=== PATIENT | male | born 1960 | race Caucasian/White ===

== ENCOUNTER 2017-04-10 20:08 | Observation (INO) | payer OTHER, SELFPAY ==
[2017-04-10 20:10] VITALS: BP 140/106; PULSE 85; RESP 16; TEMP 36.7; O2SAT 93; BMI 28.0
--- NOTE | 2017-04-10 21:01 | RAD_ITS ---
STUDY: X-RAY CHEST REASON FOR EXAM: Male, 56 years old. Hemoptysis TECHNIQUE: AP COMPARISON: None. FINDINGS: There are prominent markings in the right lower lobe possibly representing subsegmental atelectasis or evolving infiltrate. Left lung is clear. There is no demonstrated pleural abnormality. Normal size heart. Normal mediastinum and karen. Normal visualized pulmonary arteries. Normal visualized aortic arch and descending thoracic aorta. Normal visualized thoracic spine. Normal visualized ribs, clavicles, and shoulders. There is no demonstrated abnormality of the visualized soft tissue structures of the upper abdomen. RAD/Chest 1 View (Portable) IMPRESSION: Asymmetric prominence of markings in right lower lobe possibly representing subsegmental atelectasis or evolving infiltrate Electronically Signed: Dioni Alston MD at 22:18 EST , Service support ,
--- NOTE | 2017-04-10 21:01 | EKG12_ITS ---
Test Reason : SOB Blood Pressure : / mmHG Vent. Rate : 062 BPM Atrial Rate : 062 BPM P-R Int : 140 ms QRS Dur : 110 ms QT Int : 394 ms P-R-T Axes : 062 059 048 degrees QTc Int : 399 ms Normal sinus rhythm Normal ECG Confirmed by ISAURO LOPEZ, CHELO ([id number]), editor book LETHA HOWARD ([id number]) on 04/14/2017 1:11:19 PM Referred By: JANNY Confirmed By:CHELO BOX MD
--- NOTE | 2017-04-10 21:02 | CT_ITS ---
STUDY: CTA CHEST REASON FOR EXAM: Male, 56 years old. Hemoptysis RADIATION DOSAGE (If Supplied By Facility): CTDIvol = ( 16.43 ) mGy, DLP = ( 634.79 ) mGycm TECHNIQUE: The examination was performed with the intravenous administration of 100ML ml of Isovue 370 contrast material. Post-processing of the angiographic images was performed, with multiplanar reformation and 3D reconstruction. Individualized dose optimization techniques were used for this CT. COMPARISON: None. FINDINGS: Normal enhancement of the main pulmonary artery and right and left pulmonary arteries. Normal enhancement of the bilateral peripheral pulmonary arteries. There is no demonstrated pulmonary embolism. Normal thoracic aorta and visualized great vessels. There is no demonstrated aortic dissection. Normal heart and pericardium. Normal mediastinum. Normal hilar regions. Normal visualized trachea and bronchi. The lungs are well expanded. There is a subtle pattern of mosaic attenuation within the lower lobes bilaterally and right middle lobe which are nonspecific in etiology but can be seen in nonspecific conditions producing pulmonary hemorrhage Hypersensitivity pneumonitis, asthma or chronic embolic disease Dorsal spine demonstrates spondylosis. Normal chest wall structures. Normal osseous structures. Normal visualized upper abdomen. CT/CTA Chest W/WO Contrast IMPRESSION: Nonspecific mosaic attenuation appearance within the bilateral lower lobes and right middle lobe. No evidence for pulmonary embolus at this time Electronically Signed: Dioni Alston MD at 23:02 EST , Service support ,
--- NOTE | 2017-04-10 21:05 | NURSING ---
NO OLD EKG'S IN MUSE
[2017-04-10 21:17] VITALS: PULSE 64; RESP 18
[2017-04-10] MEDS: Ipratropium/Albuterol Sulfate 3 ML AMPUL.NEB INHALATION (21:17)
[2017-04-10] MEDS: Albuterol 2.5 MG/3 ML VIAL.NEB. INHALATION ×3 (21:17→21:49)
--- NOTE | 2017-04-10 21:17 | ED.DCSUM_ITS ---
- ER Visit Summary Date of Service: 04/10/17 Chief Complaint: Hemoptysis History of Present Illness: The patient is a 56 M presenting with hemoptysis since yesterday. He states he has had intermittent chest pain today. He has had a cough with bloody sputum since yesterday but worsened over the last hour. He has shortness of breath. He denies fever. He recently started colchicine for gout. He also takes aspirin and Aleve. Physical Examination: Vitals are stable. Patient is afebrile. Alert no acute distress. HEENT exam is unremarkable. Neck is supple. Lungs are rhonchorous bilaterally. Heart is regular rate and rhythm. Abdomen is soft nontender nondistended. Extremities are unremarkable. Skin is warm and dry. No focal neurologic deficit. Remainder of exam is unremarkable. Emergency Department Course and Treatment: Patient was given albuterol and atrovent aerosols. EKG is sinus rhythm rate is 62. Chest x-ray shows asymmetric prominence right lower lobe. CBC chemistries unremarkable. INR 0.9. Troponin is negative. Lactic acid is normal. Influenza is negative. CTA chest shows nonspecific mosaic attenuation appearance within the bilateral lower lobes and right middle lobe. No evidence for pulmonary embolus at this time. Discussed with Dr. Lau. He will see him in consultation in the hospital. He was given Solu-Medrol IV. Discussed with the hospitalist for admission Disposition: Admission Impression: Hemoptysis This note was generated with [employer] dictation software. It may contain incorrect words, spelling, and punctuation that were not noted in review of the chart prior to signing ED Disposition - Plan for ED Patient: Chief Complaint: Cough Referrals: NOT,DEFINED [NON-STAFF] -
[2017-04-10] MEDS: 0.9% Normal Saline 1,000 ML 1000 ML IV (21:31)
[2017-04-10 21:33] VITALS: O2SAT 96
[2017-04-10 21:33] LABS: Absolute Lymphocyte Count 2.14 X10^3/ul (0.83-4.51); Absolute Neutrophil Count 3.5 X10^3/uL (2.0-7.7); Basophil# 0.03 X10^3/uL; Basophil% 0.5 % (0-1); Eosinophil# 0.28 X10^3/uL; Eosinophils% 4.3 % (0-5); Hematocrit 43.2 % (40-54); Hemoglobin 14.7 g/dl (13.0-16.5); Lymphocyte # 2.14 X10^3/ul (4.0); Mean Corpuscular Volume 85.2 fL (80-94); Mean Platelet Vol. 9.2 fl (6.2-12.0); Monocyte# 0.55 X10^3/uL; Monocyte% 8.5 % (0-10); Neutrophil # 3.48 X10^3/uL (2.7-7.7); Neutrophil % 53.5 % (47-70); Platelet Count 272 K/mm3 (150-450); RBC Distribution Width CV 13.1 % (11.6-14.6); RBC Distribution Width SD 40.6 fl (35.1-43.9); Red Blood Count 5.07 M/mm3 (4.6-6.2); White Blood Count 6.5 K/mm3 (4.4-11.0)
[2017-04-10 21:38] LABS: POSITIVE COUNT NO; POSITIVE DIFFERENTIAL NO; POSITIVE MORPHOLOGY NO
[2017-04-10 21:49] VITALS: PULSE 71; RESP 16
[2017-04-10 21:49] LABS: International Normalized Ratio 0.9; Prothrombin Time (Protime)PT. 11.9 SECONDS (11.7-14.9)
[2017-04-10 21:50] LABS: Anion Gap 10 (5-15); BUN 16 mg/dL (7-18); BUN/Creat Ratio 20.4 RATIO (10-20); Calcium,Total 8.2 mg/dL (8.5-10.1); Chloride 109 mmol/L (98-107); Creatinine, Serum 0.79 mg/dL (0.70-1.30); EST Glomerular Filtration Rate 109 mL/min (>60); Est Glom Filt Rate - Afr Amer 132 mL/min (>60); Estimated Creatinine Clearance 117.33 ml/min; Glucose 104 mg/dL (74-106); Potassium 3.7 mmol/L (3.5-5.1); Sodium Level 141 mmol/L (136-145)
[2017-04-10 21:58] LABS: Lactic Acid 1.3 mmol/L (0.4-2.0)
[2017-04-10 23:46] VITALS: BP 131/89; PULSE 70; RESP 11; O2SAT 94
[2017-04-11] VITALS (21 sets, daily range): BP systolic 114–138; BP diastolic 57–89; PULSE 55–88; RESP 16–18; TEMP 36.4–37.3; O2SAT 93–97; BMI 27.1; BMI 27.2
--- NOTE | 2017-04-11 | FLU_PTH ---
PATIENT: AMAURY GRIFFITH LOC: [facility] U#:[id number] AGE/SX: 56/M ROOM: [facility] RE04/11/[address]: Dr. Michelle Min MD : 1960 BED: 1 DIS: 04/12/2017 SPEC #: [id number] RECD: 04/11/17 13:48 STATUS: SOUEsteban REQ #: [id number] DWAINE: 04/11/17 00:[address]: Alton Lau DEPT: CYTOLOGY RECD BY: Gary Jerez ENTERED: 04/11/17 13:48 SP TYPE: Fluid OTHR DR: Dr. Steven Fulton, DO MD Louise Conrad, BICYCLE ASSEMBLER-C Tissues: Bronchus of right lower lobe Procedures: Pap Stain (control) Special Stain Group II Special Stain Group I Surgery Specimen Level IV AFB Stain (control) GMS Stain (control) Cell Block Cytospin Fluid Comments: @ Ordering doctor for SSII edited from to [email or web address] Bills by DEBRA at 04/11/17 1526 @ Ordering doctor for SUIV edited from to [email or web address] Bills by DEBRA at 04/11/17 1526 @ Ordering doctor for CYSPIN edited from to @ by DEBRA at 04/11/17 1526 @ Submitting doctor edited from to [email or web address] Bills by DEBRA at 04/11/17 1526 HEADER OPERATION: Bronchoscopy with BAL PRE-OP DIAGNOSIS: Hemoptysis TISSUE SUBMITTED: [facility] fluid for cytology DIAGNOSIS CYTOLOGY Right lower lobe, bronchoalveolar lavage fluid for cytology (cytospin and cell block): Negative for malignant cells. Negative for acid-fast bacilli and fungal organisms. Iron laden macrophages present. AM: 04/14/17 AM: 04/15/17 COMMENT AFB and GMS stains with matched controls were used in the evaluation of this case. Immunohistochemistry ([id number]) supports the above diagnosis. Iron stain with matched control reveals scattered iron laden macrophages. Clinical correlation is suggested. Case has been reviewed in consultation with Dr. Lr who concurs with the above diagnosis. IDC:SJ CYTOLOGY STUDY Slides are reviewed. CYTOLOGY GROSS Received is 35 ml of red cloudy fluid labeled with the patient's name and and designated per the requisition as RLL. Submitted for cytology preparation including cell block. 04/11/17 TC:5 CPT: 06687, 90187, 30639 x2, 20951
--- NOTE | 2017-04-11 | FLU_PTH ---
PATIENT: AMAURY GRIFFITH LOC: [facility] U#:[id number] AGE/SX: 56/M ROOM: [facility] RE04/11/[address]: Dr. Michelle Min MD : 1960 BED: 1 DIS: 04/12/2017 SPEC #: [id number] RECD: 04/11/17 13:48 STATUS: SOUEsteban REQ #: [id number] DWAINE: 04/11/17 00:[address]: Alton Lau DEPT: CYTOLOGY RECD BY: Gary Jerez ENTERED: 04/11/17 13:48 SP TYPE: Fluid OTHR DR: Dr. Steven Fulton, DO MD Louise Conrad, LIQUID SUGAR FORTIFIER-C Tissues: Bronchus of right lower lobe Procedures: Pap Stain (control) Special Stain Group II Special Stain Group I Surgery Specimen Level IV AFB Stain (control) GMS Stain (control) Cell Block Cytospin Fluid Comments: @ Ordering doctor for SSII edited from to [email or web address] Bills by DEBRA at 04/11/17 1526 @ Ordering doctor for SUIV edited from to [email or web address] Bills by DEBRA at 04/11/17 1526 @ Ordering doctor for CYSPIN edited from to @ by DEBRA at 04/11/17 1526 @ Submitting doctor edited from to DR.[email or web address] Bills by DEBRA at 04/11/17 1526 HEADER OPERATION: Bronchoscopy with BAL PRE-OP DIAGNOSIS: Hemoptysis TISSUE SUBMITTED: RL fluid for cytology DIAGNOSIS CYTOLOGY Right lower lobe, bronchoalveolar lavage fluid for cytology (cytospin and cell block): Negative for malignant cells. Negative for acid-fast bacilli and fungal organisms. Pigment laden macrophages present. AM:hoa 04/14/17 COMMENT AFB and GMS stains with matched controls were used in the evaluation of this case. Immunohistochemistry ([id number]) supports the above diagnosis. Iron stain with matched control reveals scattered pigment laden macrophages. Clinical correlation is suggested. Case has been reviewed in consultation with Dr. Lr who concurs with the above diagnosis. IDC:SJ CYTOLOGY STUDY Slides are reviewed. CYTOLOGY GROSS Received is 35 ml of red cloudy fluid labeled with the patient's name and and designated per the requisition as RLL. Submitted for cytology preparation including cell block. 04/11/17 TC:5 CPT: 58597, 88567, 96265 x2, 35661
--- NOTE | 2017-04-11 | IMM_PTH ---
PATIENT: AMAURY GRIFFITH LOC: [facility] U#:[id number] AGE/SX: 56/M ROOM: [facility] RE04/11/[address]: Dr. Michelle Min MD : 1960 BED: 1 DIS: 04/12/2017 SPEC #: [id number] RECD: 04/14/17 11:41 STATUS: SOUT REQ #: [id number] DWAINE: 04/11/17 00:[address]: Alton Lau DEPT: IMMUNOHISTOCHEMISTRY RECD BY: Nu Herring ENTERED: 04/14/17 11:43 SP TYPE: IMMUNO OTHR DR: MD Dr. Michelle Conrad MD Dora Richardson, COMMUNITY HEALTH EDUCATION COORDINATOR-C Tissues: Lung, NOS Procedures: CK5-6 (initial) Marcio Ret (add) CD45 (add) CK8 (add) P53 (add) Comments: @ Ordering doctor for CK5-[address][email or web address] Bills by DEBRA at 04/14/17 1155 @ Ordering doctor for CALRET. edited from to DR.[email or web address] Bills by DEBRA at 04/14/17 1155 @ Ordering doctor for CD45. edited from to DR.[email or web address] Bills by DEBRA at 04/14/17 1155 @ Ordering doctor for CK8. edited from to DR.[email or web address] Bills by DEBRA at 04/14/17 1155 @ Ordering doctor for P53. edited from to DR.[email or web address] Bills by DEBRA at 04/14/17 1155 @ Submitting doctor edited from to DR.[email or web address] Bills by RGOOD at 04/14/17 1155 [facility] [address] [address] SPECIMEN INFORMATION: Tissue Source: RLL fluid for cytology Clinical Info: Hemoptysis Specimen Number: [id number] CPT code: 24943, 32780 x3 METHODOLOGY: Deparaffinized sections of prefer/formalin-fixed tissue or PAP/DQ stained slides are incubated with monoclonal/polyclonal antibodies/oligonucleotide probes. Localization is made via biotin free immunoperoxidase method. Appropriate controls are performed and reacted as expected. Results on target cell population are indicated in the following table: RESULTS: ANTIBODY / CLONE RESULT CK5-6 (D5 & 1684) positive CALRET (polyclonal) positive, dim P53 (DO-7) negative CK8 (93octrP02) positive CD45 (RP2/18) negative These tests were developed and their performance characteristics determined by [facility]. They may not have been cleared or approved by the U.S. Food and Drug Administration. The FDA has determined that such clearance or approval is not necessary. INTERPRETATION: RLL fluid for cytology: No evidence of malignancy. AM:hoa 04/15/17
[2017-04-11] MEDS: MethylPREDNISolone 125 MG/2 ML Vial IV (00:40)
--- NOTE | 2017-04-11 01:01 | HP.PCM_ITS ---
Problem List (1) Joint pain Status: Acute (2) Hemoptysis Status: Acute (3) Gout Status: Chronic (4) Hypertension Status: Chronic History of Present Illness Date of Admission: 04/11/17 Chief Complaint: Coughing up blood. The patient is a 56 year old M past medical history as mentioned above presented to the emergency room because of hemoptysis. His illness started yesterday with coughing up of bright red blood, initially was small to moderate amount, has been progressing and today, has been coughing up large amount of bright red blood, associated with mild chest fullness and congestion and without aggravating or relieving factors. He mentioned that he has been coughing up mainly blood with minimal sputum. He denies fever or chills. Denies significant shortness of breath, wheezing, chest pain, dizziness or lightheadedness. He denies syncope or presyncope. He mentioned that last year , he had similar episodes of coughing up blood and at that time, he was referred to pulmonology as outpatient who did CT scan chest and chest x-ray without any bronchoscopy and no treatment given. Since that time, he has no more problems with hemoptysis. He had a history of hypertension and he has been on lisinopril which seemed to be under control. Recently, he was started on colchicine for gout of his left big toe. Yesterday, he took Aleve and also he takes daily baby aspirin. He denied personal or family history of bleeding disorders. He denied epistaxis, hematemesis, hematochezia, melena or hematuria. He denied skin bruises or ecchymosis. He denies skin rash. On further questioning, he reported joint pain affecting the small joints of both hands and this has been going on for long time, months to years, dull aching pain, associated with swelling of the finger joints on both hands as well as morning stiffness. He did mention that in the morning, his fingers are very stiff and sometimes he needs to put them under hot water to release the stiffness. In the emergency room, his vital signs were stable. His routine blood work was unremarkable. Lactic acid was normal. Troponin was negative. EKG revealed normal sinus rhythm, normal QRS, normal [place] interval, no acute ischemic changes. Chest x-ray revealed questionable alveolar infiltrate on both bases, more on the right base. CTA chest revealed findings consistent with possible alveolar hemorrhage. He is being admitted for hemoptysis for evaluation, possible alveolar hemorrhage of unclear etiology. Past Medical History Past Medical History (Chronic Problems): Chronic Problems Gout (Chronic) Hypertension (Chronic) Allergies No Known Allergies Allergy (Verified 04/10/17 20:12) Home Medications: Ambulatory Orders Medication Instructions Recorded Colchicine 0.6 mg PO DAILY 04/10/17 Lisinopril [Zestril] 10 mg PO DAILY 04/10/17 Surgical History: noncontributory Psychiatric History: No pertinent psych hx Lives: Spouse/ Significant Other Smoking Status: Current every day smoker Alcohol: None Drugs: None - *Family History Maternal History Items: Hypertension Paternal History Items: Heart Disease, Hypertension Review of Systems Constitutional: Denies: Anorexia, Chills, Fever, Weakness Eyes: Denies: Blurred vision, Double vision, Drainage, Redness, Vision Change HEENT: Denies: Difficulty Hearing, Ear Pain, Eye Pain, Nasal Congestion, Sore Throat Cardiovascular: Denies: Chest Pain, Chest Pressure, Chest Tightness, Heaviness, Light Headedness, Palpitations, Syncope Respiratory: Reports: Cough, Hemoptysis. Denies: Pleuritic Pain, Shortness of Breath, Sputum production, Wheezing Gastrointestinal: Denies: Abdominal Pain, Constipation, Diarrhea, Hematemesis, Hematochezia, Nausea, Melena, Vomiting Genitourinary: Denies: Dysuria, Frequency, Hematuria Musculoskeletal: Reports: Joint Pain. Denies: Arm Pain, Back Pain, Foot Pain Skin: Denies: Dryness, Rash Neurological: Denies: Balance problems, Double vision, Change in Speech, Confusion, Focal weakness, Headaches, Incoordination, Numbness Psychiatric: Denies: Anxiety, Depression Endocrine: Denies: Change in Body Habitus, Polydipsia VTE Information - Inpt Only VTE Present on Admission: No VTE Mechan Device Prophylaxis: None VTE Pharm Prophylaxis ordered?: No Patient Problems: Active and Suspected Problems Joint pain (Acute) Hemoptysis (Acute) - Physical Exam General: Alert, Oriented x3, Cooperative, No apparent distress HEENT: Atraumatic, PERRLA, EOMI Oral: Moist Mucosa, No Gingival or Mucosal Lesions/ Ulcerations Neck: Supple, No JVD, Negative Carotid Bruits, Trachea Midline, Thyroid Normal Size and Texture Lungs: No rhonchi, No wheeze, Diminished, Rales, - - Decreased breath sounds bilateral, more at the bases, bilateral basal crackles more on the right base. Cardiovascular: Regular rate, Regular Rhythm, Normal S1, Normal S2, No murmurs, PMI Normal Abdomen: Bowel Sounds Present, Soft, Non Tender, Non-Distended, No Hepato- splenomegaly Extremities: No clubbing, No cyanosis, No edema Skin: No rashes, No breakdown Lymphatic: No Cervical, Supraclavicular, or Inguinal Adenopathy Neurological: Cranial nerves II-XII grossly intact, Motor Exam 5/5 strength throughout Psych/Mental Status: Normal Affect, Appropriate, Alert and oriented to time, place, person, mood and affect Vital Signs Temp Pulse Resp BP Pulse Ox 98.0 F 78 18 117/86 H 95 04/10/17 20:10 04/11/17 00:43 04/11/17 00:43 04/11/17 00:43 04/11/17 00:43 Microbiology 04/10/17 21:28 Influenza Types A,B Direct FA (JUAREZ) - Final Mucosa - Nasopharyngeal Laboratory Tests 3 04/10/17 04/10/17 04/10/17 Range/Units 21:19 21:19 21:19 WBC (4.4-11.0) K/mm3 RBC (4.6-6.2) M/mm3 Hgb (13.0-16.5) g/dl Hct (40-54) % MCV (80-94) fL MCH (27.0-32.0) pg MCHC (32-36) g/gl RDW (11.6-14.6) % RDW Differential (35.1-43.9) fl Plt Count (150-450) K/mm3 MPV (6.2-12.0) fl Immature Gran % (Auto) (0.0-0.9) % Neut % (Auto) (47-70) % Lymph % (Auto) (19-41) % [place] % (Auto) (0-10) % Eos % (Auto) (0-5) % Baso % (Auto) (0-1) % Absolute Neuts (auto) (2.0-7.7) X10^3/uL Absolute Lymphs (auto) (0.83-4.51) X10^3/ul Total Counted PT 11.9 (11.7-14.9) SECONDS INR 0.9 Sodium 141 (136-145) mmol/L Potassium 3.7 (3.5-5.1) mmol/L Chloride 109 H (98-107) mmol/L Carbon Dioxide 22.0 (21.0-32.0) mmol/L Anion Gap 10 (5-15) BUN 16 (7-18) mg/dL Creatinine 0.79 (0.70-1.30) mg/dL Estim Creat Clear Calc 117.33 ml/min Est GFR (MDRD) Af Amer 132 (>60) mL/min Est GFR (MDRD) Non-Af 109 (>60) mL/min BUN/Creatinine Ratio 20.4 H (10-20) RATIO Glucose 104 (74-106) mg/dL Lactic Acid 1.3 (0.4-2.0) mmol/L Calcium 8.2 L (8.5-10.1) mg/dL Troponin I < 0.02 (<0.06) ng/mL 3 04/10/17 Range/Units 21:19 WBC 6.5 (4.4-11.0) K/mm3 RBC 5.07 (4.6-6.2) M/mm3 Hgb 14.7 (13.0-16.5) g/dl Hct 43.2 (40-54) % MCV 85.2 (80-94) fL MCH 29.0 (27.0-32.0) pg MCHC 34.0 (32-36) g/gl RDW 13.1 (11.6-14.6) % RDW Differential 40.6 (35.1-43.9) fl Plt Count 272 (150-450) K/mm3 MPV 9.2 (6.2-12.0) fl Immature Gran % (Auto) 0.200 (0.0-0.9) % Neut % (Auto) 53.5 (47-70) % Lymph % (Auto) 33.0 (19-41) % [place] % (Auto) 8.5 (0-10) % Eos % (Auto) 4.3 (0-5) % Baso % (Auto) 0.5 (0-1) % Absolute Neuts (auto) 3.5 (2.0-7.7) X10^3/uL Absolute Lymphs (auto) 2.14 (0.83-4.51) X10^3/ul Total Counted Not Reportable PT (11.7-14.9) SECONDS INR Sodium (136-145) mmol/L Potassium (3.5-5.1) mmol/L Chloride (98-107) mmol/L Carbon Dioxide (21.0-32.0) mmol/L Anion Gap (5-15) BUN (7-18) mg/dL Creatinine (0.70-1.30) mg/dL Estim Creat Clear Calc ml/min Est GFR (MDRD) Af Amer (>60) mL/min Est GFR (MDRD) Non-Af (>60) mL/min BUN/Creatinine Ratio (10-20) RATIO Glucose (74-106) mg/dL Lactic Acid (0.4-2.0) mmol/L Calcium (8.5-10.1) mg/dL Troponin I (<0.06) ng/mL Clinical Impression(s) from Imaging Studies Chest X-Ray 04/10/17 21:01 IMPRESSION: Asymmetric prominence of markings in right lower lobe possibly representing subsegmental atelectasis or evolving infiltrate Electronically Signed: Dioni Alston MD at 22:18 EST , Service support , Chest CTA 04/10/17 21:02 IMPRESSION: Nonspecific mosaic attenuation appearance within the bilateral lower lobes and right middle lobe. No evidence for pulmonary embolus at this time Electronically Signed: Dioni Alston MD at 23:02 EST , Service support , Assessment/Plan Active and Suspected Problems Joint pain (Acute) Hemoptysis (Acute) This is a 56 years old male patient presented to the emergency room because of hemoptysis and he is being admitted for evaluation. #1 hemoptysis: With findings suggestive of possible alveolar hemorrhage on CTA chest. No evidence of PE or dissection. Differential diagnoses include interstitial pneumonitis versus other autoimmune disease such as vasculitis or rheumatoid arthritis. At this time, vital signs are stable. Routine blood work is unremarkable. EKG revealed normal sinus rhythm, no acute ischemic changes and no cardiac arrhythmias. Plan: Admit to PCU, cardiac monitoring, check PTT, liver profile, rheumatoid factor, ESR, C-reactive protein, anti-CCP, x-ray of both hands looking for arthritis and joint destruction, pulmonology consult. #2 hypertension: Blood pressure stable, continue lisinopril. #3 gout: Hold colchicine. Patient reported chronic bilateral joint pain of both hands with morning stiffness. Plan as above. #4 DVT prophylaxis: Low risk patient, no prophylaxis indicated. This note was generated with [employer] dictation software. It may contain incorrect words, spelling, and punctuation that were not noted in checking the note before signing. Code Visit Inpatient E&M: 66810 Init Hosp L3
--- NOTE | 2017-04-11 01:34 | RAD_ITS ---
STUDY: X-RAY - LEFT HAND REASON FOR EXAM: Male, 56 years old. Joint pain. TECHNIQUE: AP and lateral view(s) of the hand. COMPARISON: None. FINDINGS: Normal radiocarpal articulation. Normal distal radioulnar joint. Normal visualized carpal bones. Normal carpal articulations Normal carpometacarpal articulation of the thumb. Normal second through fifth carpometacarpal joints. Normal metacarpi. Normal metacarpophalangeal joint of the thumb. Normal interphalangeal joint of the thumb. Normal proximal and distal phalanges of the thumb. Normal metacarpophalangeal joints of the second through fifth fingers. Normal proximal and distal interphalangeal joints of the second through fifth fingers. Normal phalanges of the second through fifth fingers. A tiny radiopacity seen in the ventral soft tissues underlying the fifth metacarpophalangeal joint. RAD/Hand 2 Views IMPRESSION: Tiny radiopaque foreign body as described. Electronically Signed: Philip Ty MD at 9:42 EST Tel [phone], Service support ,
--- NOTE | 2017-04-11 01:34 | RAD_ITS ---
STUDY: X-RAY - RIGHT HAND REASON FOR EXAM: Male, 56 years old. Pain. TECHNIQUE: AP and lateral view(s) of the hand. COMPARISON: None. FINDINGS: Normal radiocarpal articulation. Normal distal radioulnar joint. Normal visualized carpal bones. Normal carpal articulations Normal carpometacarpal articulation of the thumb. Normal second through fifth carpometacarpal joints. Normal metacarpi. Normal metacarpophalangeal joint of the thumb. Normal interphalangeal joint of the thumb. Normal proximal and distal phalanges of the thumb. Normal metacarpophalangeal joints of the second through fifth fingers. Normal proximal and distal interphalangeal joints of the second through fifth fingers. Normal phalanges of the second through fifth fingers. Soft tissue swelling. RAD/Hand 2 Views IMPRESSION: Soft tissue swelling. Electronically Signed: Philip Ty MD at 9:42 EST Tel [phone], Service support ,
[2017-04-11 01:57] LABS: Partial Thromboplast Time 33.7 Seconds (24.1-36.2)
[2017-04-11 03:18] LABS: Erythrocyte Sedimentation Rate 3 mm/hr (0-20)
[2017-04-11 04:22] LABS: AST(SGOT) 16 U/L (15-37); Alanine Aminotransfer ALT/SGPT 27 U/L (16-61); Albumin, Serum 3.9 g/dL (3.2-5.0); Alkaline Phosphatase 77 U/L (45-117); Bilirubin, Direct 0.08 mg/dL (0.00-0.30); CRP < 2.90 mg/L (0.0-3.0); Globulin 3.2 g/dL (2.2-4.2); Protein, Total 7.1 g/dL (6.4-8.2); Rheumatoid Factor < 10.0 IU/mL (<15)
--- NOTE | 2017-04-11 07:32 | CON.PCM_ITS ---
Reason for Consult Date of Consultation: 04/11/17 Reason for Consultation: Hemoptysis History of Present Illness: The patient is a 56-year-old male, with a history as outlined below, who presented to the emergency department on April 10 with complaints of hemoptysis. The patient reports that this past Friday, he began to experience hemoptysis, coughing up bright red blood without sputum. This cough and subsequent hemoptysis improved over the ensuing 24 hours and nearly completely resolved. However, yesterday the patient reports that he again began to experience episodes of coughing with expectoration of bright red blood. He does report that approximately 1 year ago he had a similar episode, which was transient in nature and lasted 24-36 hours. He states that a physician evaluated him at that time and told him that he had a pimple on his lung. He denies ever having had a bronchoscopy performed previously. The patient does have a rather extensive smoking history of 1.5 packs per day ?25 years. He denies any fevers, chills or night sweats. He has never been incarcerated. He denies previous TB exposure. His weight has been stable. He is currently employed as an over the road hand trucker. The patient denies a known personal or family history of autoimmune disease. He denies any recent new medication utilization. On presentation to the emergency department, the patient was noted to be afebrile and hemodynamically stable. He has maintained appropriate oxygen saturations thus far throughout his hospital stay on room air. Initial laboratory evaluation revealed no evidence of a leukocytosis or anemia. Coagulation profile was within normal limits. Chemistry profile was largely unremarkable. Serum lactate was negative. Troponin was negative. A CTA chest was obtained and revealed a very subtle pattern of mosaic attenuation within the lower lobes bilaterally, along with lower lobe predominant bronchiectasis. There was no evidence for PE. Past Medical History Past Medical History (Chronic Problems): Chronic Problems Gout (Chronic) Hypertension (Chronic) Allergies No Known Allergies Allergy (Verified 04/10/17 20:12) Home Medications: Ambulatory Orders Medication Instructions Recorded Colchicine 0.6 mg PO DAILY 04/10/17 Lisinopril [Zestril] 10 mg PO DAILY 04/10/17 Aspirin [Aspirin, Baby] 81 mg PO DAILY@0800 04/11/17 Surgical History: noncontributory Psychiatric History: No pertinent psych hx Lives: Spouse/ Significant Other Smoking Status: Current every day smoker Alcohol: None Drugs: None - *Family History Maternal History Items: Hypertension Paternal History Items: Heart Disease, Hypertension Review of Systems Constitutional: Denies: Anorexia, Chills, Fever, Night Sweats Eyes: Denies: Blurred vision, Double vision HEENT: Denies: Head Aches, Sinus Congestion, Sinus Drainage Cardiovascular: Denies: Chest Pain, Palpitations Respiratory: Reports: Cough, Hemoptysis Gastrointestinal: Denies: Abdominal Pain, Nausea, Vomiting Genitourinary: Denies: Dysuria Musculoskeletal: Reports: Joint Tenderness Skin: Denies: Rash, Wounds Neurological: Denies: Numbness, Tingling, Focal weakness Psychiatric: Denies: Anxiety, Depression, Homicidal Ideations, Suicidal Ideations Hematologic/ Lymphatic: Denies: Easy Bruising, Easy Bleeding Patient Problems: Active and Suspected Problems Joint pain (Acute) Hemoptysis (Acute) Objective: The patient's most recent lab work, culture data and imaging studies have all been personally reviewed. Rapid influenza screen was negative. - Physical Exam General: Alert, Oriented x3, Cooperative, No apparent distress HEENT: Atraumatic, PERRLA, Normocephalic Oral: Moist Mucosa, No Gingival or Mucosal Lesions/ Ulcerations Neck: Supple, No Nodes, Trachea Midline Lungs: Normal air movement, - - Bilateral basilar rales Cardiovascular: Regular rate, Regular Rhythm, Normal S1, Normal S2, No murmurs Abdomen: Bowel Sounds Present, Soft, Non Tender, Non-Distended Extremities: No clubbing, No cyanosis, No edema Skin: No rashes, No breakdown Musculoskeletal: No Tenderness to Palpation of Joints or Extremities, No Muscle Wasting Lymphatic: No Cervical, Supraclavicular, or Inguinal Adenopathy Neurological: Neuro grossly intact Psych/Mental Status: Alert and oriented to time, place, person, mood and affect Vital Signs Temp Pulse Resp BP Pulse Ox 97.7 F L 62 16 120/73 96 04/11/17 01:59 04/11/17 02:58 04/11/17 01:59 04/11/17 01:59 04/11/17 02:18 Oxygen Delivery Method Room Air Weight: 200 lb 9.93 oz Body Mass Index (BMI) 27.1 Intake and Output for Last 24 Hours 04/09/17 04/10/17 04/11/17 23:59 23:59 23:59 Intake Total 200 / 200 Balance 200 / 200 Laboratory Tests Past 24 Hrs 04/11/17 06:15 Cycl Citrul Peptide IgG Pending Labs (Last 48 Hours) 04/10/17 04/10/17 04/10/17 21:19 21:19 21:19 WBC 6.5 RBC 5.07 Hgb 14.7 Hct 43.2 MCV 85.2 MCH 29.0 MCHC 34.0 RDW 13.1 RDW Differential 40.6 Plt Count 272 MPV 9.2 Immature Gran % (Auto) 0.200 Neut % (Auto) 53.5 Lymph % (Auto) 33.0 [place] % (Auto) 8.5 Eos % (Auto) 4.3 Baso % (Auto) 0.5 Absolute Neuts (auto) 3.5 Absolute Lymphs (auto) 2.14 Total Counted Not Reportable ESR PT 11.9 INR 0.9 APTT Sodium 141 Potassium 3.7 Chloride 109 H Carbon Dioxide 22.0 Anion Gap 10 BUN 16 Creatinine 0.79 Estim Creat Clear Calc 117.33 Est GFR (MDRD) Af Amer 132 Est GFR (MDRD) Non-Af 109 BUN/Creatinine Ratio 20.4 H Glucose 104 Lactic Acid Calcium 8.2 L Total Bilirubin Direct Bilirubin AST ALT Alkaline Phosphatase Troponin I < 0.02 C-React Prot Ext Range Total Protein Albumin Globulin Rheumatoid Factor Cycl Citrul Peptide IgG SARABJIT Screen TAVIA-1 Antibody SS-A/Ro IgG Antibody SS-B/La IgG Antibody Sm (Trejo) Antibody DEPARTMENT SUPERVISOR Antibody Scl-70 Scleroderma Ab Double Strand DNA Ab Centromere B Antibody 04/10/17 04/10/17 04/10/17 21:19 21:19 21:19 WBC RBC Hgb Hct MCV MCH MCHC RDW RDW Differential Plt Count MPV Immature Gran % (Auto) Neut % (Auto) Lymph % (Auto) [place] % (Auto) Eos % (Auto) Baso % (Auto) Absolute Neuts (auto) Absolute Lymphs (auto) Total Counted ESR 3 PT INR APTT Sodium Potassium Chloride Carbon Dioxide Anion Gap BUN Creatinine Estim Creat Clear Calc Est GFR (MDRD) Af Amer Est GFR (MDRD) Non-Af BUN/Creatinine Ratio Glucose Lactic Acid 1.3 Calcium Total Bilirubin 0.40 Direct Bilirubin 0.08 AST 16 ALT 27 Alkaline Phosphatase 77 Troponin I C-React Prot Ext Range < 2.90 Total Protein 7.1 Albumin 3.9 Globulin 3.2 Rheumatoid Factor < 10.0 Cycl Citrul Peptide IgG SARABJIT Screen TAVIA-1 Antibody SS-A/Ro IgG Antibody SS-B/La IgG Antibody Sm (Trejo) Antibody DEPARTMENT SUPERVISOR Antibody Scl-70 Scleroderma Ab Double Strand DNA Ab Centromere B Antibody 04/10/17 04/11/17 04/11/17 21:19 06:15 06:15 WBC RBC Hgb Hct MCV MCH MCHC RDW RDW Differential Plt Count MPV Immature Gran % (Auto) Neut % (Auto) Lymph % (Auto) [place] % (Auto) Eos % (Auto) Baso % (Auto) Absolute Neuts (auto) Absolute Lymphs (auto) Total Counted ESR PT INR APTT 33.7 Sodium Potassium Chloride Carbon Dioxide Anion Gap BUN Creatinine Estim Creat Clear Calc Est GFR (MDRD) Af Amer Est GFR (MDRD) Non-Af BUN/Creatinine Ratio Glucose Lactic Acid Calcium Total Bilirubin Direct Bilirubin AST ALT Alkaline Phosphatase Troponin I C-React Prot Ext Range Total Protein Albumin Globulin Rheumatoid Factor Cycl Citrul Peptide IgG Pending SARABJIT Screen Pending TAVIA-1 Antibody Pending SS-A/Ro IgG Antibody Pending SS-B/La IgG Antibody Pending Sm (Trejo) Antibody Pending DEPARTMENT SUPERVISOR Antibody Pending Scl-70 Scleroderma Ab Pending Double Strand DNA Ab Pending Centromere B Antibody Pending Microbiology 04/10/17 21:28 Mucosa - Nasopharyngeal Influenza Types A,B Direct FA (JUAREZ) - Final Clinical Impression(s) from Imaging Studies Chest X-Ray 04/10/17 21:01 IMPRESSION: Asymmetric prominence of markings in right lower lobe possibly representing subsegmental atelectasis or evolving infiltrate Electronically Signed: Dioni Alston MD at 22:18 EST , Service support , Chest CTA 04/10/17 21:02 IMPRESSION: Nonspecific mosaic attenuation appearance within the bilateral lower lobes and right middle lobe. No evidence for pulmonary embolus at this time Electronically Signed: Dioni Alston MD at 23:02 EST , Service support , Assessment/Plan Active and Suspected Problems Joint pain (Acute) Hemoptysis (Acute) RECOMMENDATIONS: 1. Following a discussion regarding the risks and benefits of bronchoscopy, the patient has agreed to proceed. We will plan to perform bronchoscopy this morning at 10 AM. 2. Check full respiratory viral panel 3. Check SARABJIT panel with reflex. Anti-CCP is pending. Also send complement profile along with ANCA and anti-GBM antibody. 4. Obtain bedside echocardiogram 5. Following bronchoscopy, start Levaquin and IV steroids. 6. Continue scheduled aerosol treatments 7. Smoking cessation is advisable 8. The patient undoubtedly needs to follow-up in the pulmonary medicine clinic within 1 week of his discharge from the hospital. Baseline PFTs can be obtained on an outpatient basis. IMPRESSIONS: 1. Hemoptysis Unclear etiology at this time. Although the patient does report a similar episode to this 1 year ago, which was transient in nature and resolved on its own. We will plan to perform bronchoscopy and obtain a bronchoalveolar lavage which will be sent for bacterial and fungal cultures, along with cell count and cytology. The patient does not have an underlying coagulopathy, nor is utilizing any potentially offending medications. Given the radiographic evidence of bronchiectasis on CT scan, we will plan to start Levaquin and IV steroids following the bronchoscopy. Autoimmune/vasculitic panels are pending. We will also plan to check a complement profile and anti-GBM antibody. 2. History of tobacco abuse Smoking cessation is strongly advised. The patient should be seen in the pulmonary medicine clinic within 1 week of his discharge from the hospital. Baseline pulmonary function testing can be obtained on an outpatient basis. 3. Hypertension/gout Complicates care, management, recovery and prognosis. Continue home medications as indicated. This note was generated with [email or web address] dictation software. It may contain incorrect words, spelling, and punctuation that were not noted in checking the note before signing. Code Visit Inpatient E&M: 25373 Init Hosp L3
[2017-04-11] MEDS: 0.9% NaCl Peripheral Flush Adult/Peds IV ×3 (08:38→23:00)
--- NOTE | 2017-04-11 10:46 | ECHOD_ITS ---
Reason For Study: DYSPNEA/SOB Procedure This was a 2D Doppler, Color Flow transthoracic echocardiogram. The exam was of adequate technical quality. Exam performed portable in patient room. Left Ventricle Normal LV size. Left ventricular systolic function is normal. The estimated ejection fraction is 65 %. No evidence for diastolic dysfunction. No regional wall motion abnormalities noted. Right Ventricle Normal RV size. Normal systolic function. Atria Normal left atrium. Normal right atrium. No doppler evidence for ASD. Mitral Valve There is no mitral annular calcification. Normal mitral valve. Trivial mitral valve insufficiency. Tricuspid Valve Normal tricuspid valve. Trivial tricuspid valve insufficiency. Aortic Valve Trisinus/trileaflet aortic valve. Normal aortic valve. Pulmonic Valve The pulmonic valve is not well visualized. Trivial pulmonic valve insufficiency. Great Vessels Normal sized aortic root. Pericardium/Pleural No pericardial effusion. MMode/2D Measurements & Calculations LVIDd: 5.4 cm IVSd: 1.1 cm Ao root diam: 3.4 cm LVIDs: 3.7 cm LVPWd: 0.93 cm LA dimension: 3.6 cm RVDd: 4.5 cm FS: 30.8 % LAV(MOD-bp): 55.3 ml LA A4 area: 18.3 cm2 RA A4 area: 17.3 cm2 LAV(MOD-bp) Indexed: 26.0 ml/m2 LAV(MOD-sp2): 56.0 ml LAV(MOD-sp4): 53.1 ml Doppler Measurements & Calculations MV E max mickey: 72.6 cm/sec Ao V2 max: 163.4 cm/sec LV V1 max: 114.7 cm/sec MV A max mickey: 64.8 cm/sec Ao max P.7 mmHg LV V1 max P.3 mmHg MV E/A: 1.1 Interpretation Summary Left ventricular systolic function is normal. The estimated ejection fraction is 65 %. Trivial mitral valve insufficiency. Trivial tricuspid valve insufficiency. Trivial pulmonic valve insufficiency. No evidence for diastolic dysfunction. Ordering Physician: Alton Lau D.O. Referring Physician: CATHERINE HOGAN Performed By: Maureen Khalil, ALEXIA, RVT
--- NOTE | 2017-04-11 10:52 | PCM.OP.BLANK ---
Operative Report Date of Procedure: 04/11/17 DATE OF SERVICE: April 11, 2017 BRIEF HISTORY: The patient is a 56-year-old male who presented to the emergency department on April 10 with subacute hemoptysis of 3 days duration. The patient does report a prior incident approximately 1 years ago, which resolved on its own and lasted approximately 24 hours. He is a current smoker, but has no known coagulopathic disorder, has not been started on any recent new medications, and has no known history of autoimmune/vasculitides. Therefore, the patient was referred to me to undergo an airway evaluation via bronchoscopy and to obtain samples with bronchoalveolar lavage. PROCEDURE: Bronchoscopy with bronchoalveolar lavage INDICATION: Hemoptysis PHYSICIAN: Alton Lau DO ANESTHETIC: Versed 2 mg, fentanyl 75 mcg COMPLICATIONS: No immediate complications noted. DESCRIPTION OF PROCEDURE: A history and physical has been performed. Please see inpatient consultation note. The patient's medications and allergies have been reviewed. Informed consent was obtained from the patient. The risks and benefits of the procedure and sedation options and risks were discussed with the patient at length. All questions were answered and informed consent was obtained. The patient's identification and proposed procedure were verified prior to the procedure by the physician. ASA Grade Assessment: II After obtaining informed consent, the bronchoscope was inserted through the patient's mouth and advanced to the tracheobronchial tree bilaterally. This procedure was accomplished without difficulty. The patient tolerated the procedure well. FINDINGS: There was a small amount of blood located in the supraglottic space. Vocal cords were normal in appearance. Diffuse bilateral erythematous and friable airway mucosa was noted. Scant blood was noted throughout the airway bilaterally. There was no foci of active bleeding identified. Following a preliminary evaluation of the patient's airways, the bronchoscope was advanced into the right lower lobe, where it was wedged. Bronchoalveolar lavage was performed. Throughout the procedure, the patient did experience a great deal of coughing. A total of 2 separate lavages were performed in the same subsegment of the right lower lobe. Each of the 2 lavage returns was equally bloody in appearance. Unfortunately, a third aliquot could not be instilled, due to excessive patient coughing. The patient's airway was subsequently cleared of any retained secretions and/or blood. The bronchoscope was then withdrawn through the patient's mouth. IMPRESSION: 1. Diffusely erythematous and friable airways were noted bilaterally. No foci of active bleeding was identified. 2. Bronchoalveolar lavage was performed in the right lower lobe with return of bloody fluid noted. BAL will be sent for cell count, bacterial cultures, fungal cultures and cytology. 3. There is likely a component of pulmonary capillaritis or diffuse alveolar hemorrhage, based upon the BAL return. RECOMMENDATIONS: 1. Start Levaquin for empiric antimicrobial coverage. 2. Start IV steroids 3. Autoimmune/vasculitic workup has been ordered and is pending. Code Visit [id number]: 49028 Dx bronchoscope/lavage
[2017-04-11 11:16] LABS: Cytology, Body Fluid / CSF SEE PATHOLOGY REPORT
[2017-04-11] MEDS: Lisinopril 10 MG Tablet PO (11:55)
[2017-04-11] MEDS: levoFLOXacin 750 MG Tablet PO (11:55)
[2017-04-11 12:03] LABS: White Blood Count/Body Fluid 5 /mm3
[2017-04-11 12:06] LABS: Appearance/Body Fluid SL CLDY; Color/Body Fluid RED; Red Cell Count/Body Fluid 12160 /mm3; Source- Body Fluid BRONCHIAL LAVAGE
[2017-04-11 12:47] LABS: Absolute Lymphocyte Count 0.52 X10^3/ul (0.83-4.51); Absolute Neutrophil Count 6.5 X10^3/uL (2.0-7.7); Differential Indicated SCAN CRITERIA MET; Hematocrit 40.6 % (40-54); Hemoglobin 13.9 g/dl (13.0-16.5); Lymphocyte # 0.52 X10^3/ul (4.0); Lymphocyte % 7.3 % (19-41); Mean Corp Hgb Conc 34.2 g/gl (32-36); Mean Corpuscular Hgb 29.1 pg (27.0-32.0); Mean Corpuscular Volume 85.1 fL (80-94); Mean Platelet Vol. 9.8 fl (6.2-12.0); Monocyte# 0.08 X10^3/uL; Monocyte% 1.1 % (0-10); Neutrophil # 6.49 X10^3/uL (2.7-7.7); Neutrophil % 91.5 % (47-70); POSITIVE COUNT NO; POSITIVE DIFFERENTIAL YES; POSITIVE MORPHOLOGY NO; Platelet Count 293 K/mm3 (150-450); RBC Distribution Width CV 13.1 % (11.6-14.6); Red Blood Count 4.77 M/mm3 (4.6-6.2); White Blood Count 7.1 K/mm3 (4.4-11.0)
--- NOTE | 2017-04-11 12:58 | PCM.PROGNOTE ---
<Dara Weaver - Last Filed: 04/11/17 13:17> Patient Problems: Active and Suspected Problems Joint pain (Acute) Hemoptysis (Acute) Subjective: Patient seen and examined. Denies further significant hemoptysis although he states he as blood tinged sputum at times. Denies shortness of breath, fever, chills. Complains of intermittent cough. Denies recent illness or exposure to illness. - Physical Exam General: Alert, Oriented x3, Cooperative, No apparent distress HEENT: Atraumatic, PERRLA, EOMI, Normocephalic Neck: Supple, No JVD, Negative Carotid Bruits Lungs: Diminished, Rales Cardiovascular: Regular rate, Regular Rhythm, Normal S1, Normal S2, No murmurs Abdomen: Bowel Sounds Present, Soft, Non Tender, Non-Distended Extremities: No clubbing, No cyanosis, No edema, Capillary Refill Less than 3 Seconds Skin: No rashes, No breakdown Musculoskeletal: No Tenderness to Palpation of Joints or Extremities Neurological: Cranial nerves II-XII grossly intact, Neuro grossly intact Psych/Mental Status: Normal Affect, Appropriate Vital Signs Temp Pulse Resp BP Pulse Ox 97.5 F L 64 18 132/89 H 95 04/11/17 11:50 04/11/17 11:50 04/11/17 11:50 04/11/17 11:50 04/11/17 11:50 Oxygen Delivery Method Room Air Weight: 91 kg Body Mass Index (BMI) 27.1 Intake and Output for Last 24 Hours 04/09/17 04/10/17 04/11/17 23:59 23:59 23:59 Intake Total 1160 / 1160 Balance 1160 / 1160 Microbiology Past 72 Hours 04/11/17 08:45 Respiratory Panel (PCR) - Final Mucosa - Nasopharyngeal Laboratory Tests Past 24 Hrs 04/11/17 04/11/17 04/11/17 06:15 06:15 10:30 WBC RBC Hgb Hct MCV MCH MCHC RDW RDW Differential Plt Count MPV Immature Gran % (Auto) Neut % (Auto) Lymph % (Auto) [place] % (Auto) Eos % (Auto) Baso % (Auto) Absolute Neuts (auto) Absolute Lymphs (auto) Total Counted Fluid Source BRONCHIAL [place] Fluid Color RED Fluid Appearance SL CLDY Fluid WBC 5 Fluid RBC 94053 Fluid Tot Cell Count TNP Fl Pathologist Comment May follow Fluid Comment 2 Not Reportable Cycl Citrul Peptide IgG Pending SARABJIT Screen Pending c-ANCA Antibody p-ANCA Antibody TAVIA-1 Antibody Pending SS-A/Ro IgG Antibody Pending SS-B/La IgG Antibody Pending Sm (Trejo) Antibody Pending HAND STAPLER Antibody Pending Scl-70 Scleroderma Ab Pending Double Strand DNA Ab Pending Centromere B Antibody Pending Glomerular Base Memb Ab Complement C3 Complement C4 Tot Complement (CH50) Legionella Direct FA Miscellaneous Cytology 04/11/17 04/11/17 04/11/17 10:30 10:30 12:36 WBC 7.1 RBC 4.77 Hgb 13.9 Hct 40.6 MCV 85.1 MCH 29.1 MCHC 34.2 RDW 13.1 RDW Differential 40.0 Plt Count 293 MPV 9.8 Immature Gran % (Auto) 0.100 Neut % (Auto) 91.5 H Lymph % (Auto) 7.3 L [place] % (Auto) 1.1 Eos % (Auto) 0.0 Baso % (Auto) 0.0 Absolute Neuts (auto) 6.5 Absolute Lymphs (auto) 0.52 L Total Counted Pending Fluid Source Fluid Color Fluid Appearance Fluid WBC Fluid RBC Fluid Tot Cell Count Fl Pathologist Comment Fluid Comment 2 Cycl Citrul Peptide IgG SARABJIT Screen c-ANCA Antibody p-ANCA Antibody TAVIA-1 Antibody SS-A/Ro IgG Antibody SS-B/La IgG Antibody Sm (Trejo) Antibody HAND STAPLER Antibody Scl-70 Scleroderma Ab Double Strand DNA Ab Centromere B Antibody Glomerular Base Memb Ab Complement C3 Complement C4 Tot Complement (CH50) Legionella Direct FA Pending Miscellaneous Cytology Pending 04/11/17 04/11/17 04/11/17 12:36 12:36 12:36 WBC RBC Hgb Hct MCV MCH MCHC RDW RDW Differential Plt Count MPV Immature Gran % (Auto) Neut % (Auto) Lymph % (Auto) [place] % (Auto) Eos % (Auto) Baso % (Auto) Absolute Neuts (auto) Absolute Lymphs (auto) Total Counted Fluid Source Fluid Color Fluid Appearance Fluid WBC Fluid RBC Fluid Tot Cell Count Fl Pathologist Comment Fluid Comment 2 Cycl Citrul Peptide IgG SARABJIT Screen c-ANCA Antibody Pending p-ANCA Antibody Pending TAVIA-1 Antibody SS-A/Ro IgG Antibody SS-B/La IgG Antibody Sm (Trejo) Antibody HAND STAPLER Antibody Scl-70 Scleroderma Ab Double Strand DNA Ab Centromere B Antibody Glomerular Base Memb Ab Pending Complement C3 Pending Complement C4 Pending Tot Complement (CH50) Pending Legionella Direct FA Miscellaneous Cytology Assessment/Plan Active and Suspected Problems Joint pain (Acute) Hemoptysis (Acute) Patient is a 56-year-old male admitted 04/11/17 due to coughing up blood. He has a past medical history of gout, hypertension. Patient states he had an episode of hemoptysis approximately 1 year ago which was evaluated with CTA and no significant source of bleeding was found. 1. Hemoptysis-pulmonary consulted. Etiology unclear. Chest CTA showed nonspecific mosaic attenuation appearance within the bilateral lower lobes and right middle lobe. No evidence of pulmonary embolism. Patient underwent bronchoscopy this morning which showed diffusely erythematous and friable airways bilaterally. No active bleeding noted. Bloody fluid noted in right lower lobe. Cultures were sent for testing. Pulmonary suspecting pulmonary capillaritis or diffuse alveolar hemorrhage. Patient was started on IV Levaquin and IV steroids. Autoimmune and vasculitic workup pending. Patient is hemodynamically stable. Respiratory panel negative. If patient has no further significant hemoptysis overnight, anticipate discharge home with outpatient follow-up with Dr. Lau. 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 Patient denies any chemical exposure or travel outside the country. Echocardiogram pending. 2. Hypertension-stable, continue lisinopril. 3. Gout-colchicine on hold. Patient reported chronic bilateral joint pain in hands. Rheumatoid factor negative. CRP within normal limits. X-ray of bilateral hands showed no joint destruction. 4. Tobacco dependence-patient has smoked 1-1/2 packs per day for approximately 25 years. Encourage smoking cessation. Nicotine replacement patch if desired. DVT prophylaxis- not indicated, pharmacologic prophylaxis contraindicated. This patient was seen by DENICE Wong under the supervision of Dr. Fulton. <Steven Fulton - Last Filed: 04/11/17 15:43> - Physical Exam General: Alert, No apparent distress HEENT: Atraumatic, Normocephalic Neck: No Nodes, Thyroid Normal Size and Texture Lungs: Clear to auscultation, Normal air movement, No rhonchi, No wheeze Cardiovascular: Regular rate, Regular Rhythm, Normal S1, Normal S2 Abdomen: Bowel Sounds Present, Soft, Non Tender, Non-Distended, No Hepato-splenomegaly Extremities: No edema, No Calf Tenderness Psych/Mental Status: Normal Affect, Appropriate Vital Signs Temp Pulse Resp BP Pulse Ox 36.4 C L 64 18 132/89 H 95 04/11/17 11:50 04/11/17 11:50 04/11/17 11:50 04/11/17 11:50 04/11/17 11:50 Oxygen Delivery Method Room Air Weight: 91 kg Body Mass Index (BMI) 27.1 Intake and Output for Last 24 Hours 04/09/17 04/10/17 04/11/17 23:59 23:59 23:59 Intake Total 1160 / 1160 Balance 1160 / 1160 Microbiology Past 72 Hours 04/11/17 08:45 Respiratory Panel (PCR) - Final Mucosa - Nasopharyngeal Laboratory Tests Past 24 Hrs 04/11/17 04/11/17 04/11/17 06:15 06:15 10:30 WBC RBC Hgb Hct MCV MCH MCHC RDW RDW Differential Plt Count MPV Immature Gran % (Auto) Neut % (Auto) Lymph % (Auto) Coleman % (Auto) Eos % (Auto) Baso % (Auto) Absolute Neuts (auto) Absolute Lymphs (auto) Total Counted Fluid Source BRON[place]IAL [place] Fluid Color RED Fluid Appearance SL CLDY Fluid WBC 5 Fluid RBC 62868 Fluid Tot Cell Count TNP Fluid Neutrophils 30 Fluid Macrophages 70 Fl Pathologist Comment May follow Fluid Comment 2 Not Reportable Cycl Citrul Peptide IgG Pending SARABJIT Screen Pending c-ANCA Antibody p-ANCA Antibody TAVIA-1 Antibody Pending SS-A/Ro IgG Antibody Pending SS-B/La IgG Antibody Pending Sm (Trejo) Antibody Pending HAND STAPLER Antibody Pending Scl-70 Scleroderma Ab Pending Double Strand DNA Ab Pending Centromere B Antibody Pending Glomerular Base Memb Ab Complement C3 Complement C4 Tot Complement (CH50) Legionella Direct FA Miscellaneous Cytology 04/11/17 04/11/17 04/11/17 10:30 10:30 12:36 WBC 7.1 RBC 4.77 Hgb 13.9 Hct 40.6 MCV 85.1 MCH 29.1 MCHC 34.2 RDW 13.1 RDW Differential 40.0 Plt Count 293 MPV 9.8 Immature Gran % (Auto) 0.100 Neut % (Auto) 91.5 H Lymph % (Auto) 7.3 L Coleman % (Auto) 1.1 Eos % (Auto) 0.0 Baso % (Auto) 0.0 Absolute Neuts (auto) 6.5 Absolute Lymphs (auto) 0.52 L Total Counted Not Reportable Fluid Source Fluid Color Fluid Appearance Fluid WBC Fluid RBC Fluid Tot Cell Count Fluid Neutrophils Fluid Macrophages Fl Pathologist Comment Fluid Comment 2 Cycl Citrul Peptide IgG SARABJIT Screen c-ANCA Antibody p-ANCA Antibody TAVIA-1 Antibody SS-A/Ro IgG Antibody SS-B/La IgG Antibody Sm (Trejo) Antibody HAND STAPLER Antibody Scl-70 Scleroderma Ab Double Strand DNA Ab Centromere B Antibody Glomerular Base Memb Ab Complement C3 Complement C4 Tot Complement (CH50) Legionella Direct FA Pending Miscellaneous Cytology Pending 04/11/17 04/11/17 04/11/17 12:36 12:36 12:36 WBC RBC Hgb Hct MCV MCH MCHC RDW RDW Differential Plt Count MPV Immature Gran % (Auto) Neut % (Auto) Lymph % (Auto) Coleman % (Auto) Eos % (Auto) Baso % (Auto) Absolute Neuts (auto) Absolute Lymphs (auto) Total Counted Fluid Source Fluid Color Fluid Appearance Fluid WBC Fluid RBC Fluid Tot Cell Count Fluid Neutrophils Fluid Macrophages Fl Pathologist Comment Fluid Comment 2 Cycl Citrul Peptide IgG SARABJIT Screen c-ANCA Antibody Pending p-ANCA Antibody Pending TAVIA-1 Antibody SS-A/Ro IgG Antibody SS-B/La IgG Antibody Sm (Trejo) Antibody HAND STAPLER Antibody Scl-70 Scleroderma Ab Double Strand DNA Ab Centromere B Antibody Glomerular Base Memb Ab Pending Complement C3 Pending Complement C4 Pending Tot Complement (CH50) Pending Legionella Direct FA Miscellaneous Cytology Assessment/Plan Pt seen and examined independently. i agree with the above note by the ENGLISH DIVISION CHAIR 1. Hemoptysis: much improved secondary to bronchiectasis friable tissue on bronch D/W Dr. Lau, monitor the patient overnight and if doing better, can be discharged 04/12. 2. Bronchiectasis on levaquin follow up with Pulmonology as outpt. Code Visit Inpatient E&M: 22906 Subs Hosp L2
--- NOTE | 2017-04-11 13:15 | PN_ITS ---
<Dara Weaver - Last Filed: 04/11/17 13:17> Patient Problems: Active and Suspected Problems Joint pain (Acute) Hemoptysis (Acute) Subjective: Patient seen and examined. Denies further significant hemoptysis although he states he as blood tinged sputum at times. Denies shortness of breath, fever, chills. Complains of intermittent cough. Denies recent illness or exposure to illness. - Physical Exam General: Alert, Oriented x3, Cooperative, No apparent distress HEENT: Atraumatic, PERRLA, EOMI, Normocephalic Neck: Supple, No JVD, Negative Carotid Bruits Lungs: Diminished, Rales Cardiovascular: Regular rate, Regular Rhythm, Normal S1, Normal S2, No murmurs Abdomen: Bowel Sounds Present, Soft, Non Tender, Non-Distended Extremities: No clubbing, No cyanosis, No edema, Capillary Refill Less than 3 Seconds Skin: No rashes, No breakdown Musculoskeletal: No Tenderness to Palpation of Joints or Extremities Neurological: Cranial nerves II-XII grossly intact, Neuro grossly intact Psych/Mental Status: Normal Affect, Appropriate Vital Signs Temp Pulse Resp BP Pulse Ox 97.5 F L 64 18 132/89 H 95 04/11/17 11:50 04/11/17 11:50 04/11/17 11:50 04/11/17 11:50 04/11/17 11:50 Oxygen Delivery Method Room Air Weight: 91 kg Body Mass Index (BMI) 27.1 Intake and Output for Last 24 Hours 04/09/17 04/10/17 04/11/17 23:59 23:59 23:59 Intake Total 1160 / 1160 Balance 1160 / 1160 Microbiology Past 72 Hours 04/11/17 08:45 Respiratory Panel (PCR) - Final Mucosa - Nasopharyngeal Laboratory Tests Past 24 Hrs 04/11/17 04/11/17 04/11/17 06:15 06:15 10:30 WBC RBC Hgb Hct MCV MCH MCHC RDW RDW Differential Plt Count MPV Immature Gran % (Auto) Neut % (Auto) Lymph % (Auto) [place] % (Auto) Eos % (Auto) Baso % (Auto) Absolute Neuts (auto) Absolute Lymphs (auto) Total Counted Fluid Source BRONCHIAL [place] Fluid Color RED Fluid Appearance SL CLDY Fluid WBC 5 Fluid RBC 51639 Fluid Tot Cell Count TNP Fl Pathologist Comment May follow Fluid Comment 2 Not Reportable Cycl Citrul Peptide IgG Pending SARABJIT Screen Pending c-ANCA Antibody p-ANCA Antibody TAVIA-1 Antibody Pending SS-A/Ro IgG Antibody Pending SS-B/La IgG Antibody Pending Sm (Trejo) Antibody Pending ASSISTANT DEAN OF STUDENTS Antibody Pending Scl-70 Scleroderma Ab Pending Double Strand DNA Ab Pending Centromere B Antibody Pending Glomerular Base Memb Ab Complement C3 Complement C4 Tot Complement (CH50) Legionella Direct FA Miscellaneous Cytology 04/11/17 04/11/17 04/11/17 10:30 10:30 12:36 WBC 7.1 RBC 4.77 Hgb 13.9 Hct 40.6 MCV 85.1 MCH 29.1 MCHC 34.2 RDW 13.1 RDW Differential 40.0 Plt Count 293 MPV 9.8 Immature Gran % (Auto) 0.100 Neut % (Auto) 91.5 H Lymph % (Auto) 7.3 L [place] % (Auto) 1.1 Eos % (Auto) 0.0 Baso % (Auto) 0.0 Absolute Neuts (auto) 6.5 Absolute Lymphs (auto) 0.52 L Total Counted Pending Fluid Source Fluid Color Fluid Appearance Fluid WBC Fluid RBC Fluid Tot Cell Count Fl Pathologist Comment Fluid Comment 2 Cycl Citrul Peptide IgG SARABJIT Screen c-ANCA Antibody p-ANCA Antibody TAVIA-1 Antibody SS-A/Ro IgG Antibody SS-B/La IgG Antibody Sm (Trejo) Antibody ASSISTANT DEAN OF STUDENTS Antibody Scl-70 Scleroderma Ab Double Strand DNA Ab Centromere B Antibody Glomerular Base Memb Ab Complement C3 Complement C4 Tot Complement (CH50) Legionella Direct FA Pending Miscellaneous Cytology Pending 04/11/17 04/11/17 04/11/17 12:36 12:36 12:36 WBC RBC Hgb Hct MCV MCH MCHC RDW RDW Differential Plt Count MPV Immature Gran % (Auto) Neut % (Auto) Lymph % (Auto) [place] % (Auto) Eos % (Auto) Baso % (Auto) Absolute Neuts (auto) Absolute Lymphs (auto) Total Counted Fluid Source Fluid Color Fluid Appearance Fluid WBC Fluid RBC Fluid Tot Cell Count Fl Pathologist Comment Fluid Comment 2 Cycl Citrul Peptide IgG SARABJIT Screen c-ANCA Antibody Pending p-ANCA Antibody Pending TAVIA-1 Antibody SS-A/Ro IgG Antibody SS-B/La IgG Antibody Sm (Trejo) Antibody ASSISTANT DEAN OF STUDENTS Antibody Scl-70 Scleroderma Ab Double Strand DNA Ab Centromere B Antibody Glomerular Base Memb Ab Pending Complement C3 Pending Complement C4 Pending Tot Complement (CH50) Pending Legionella Direct FA Miscellaneous Cytology Assessment/Plan Active and Suspected Problems Joint pain (Acute) Hemoptysis (Acute) Patient is a 56-year-old male admitted 04/11/17 due to coughing up blood. He has a past medical history of gout, hypertension. Patient states he had an episode of hemoptysis approximately 1 year ago which was evaluated with CTA and no significant source of bleeding was found. 1. Hemoptysis-pulmonary consulted. Etiology unclear. Chest CTA showed nonspecific mosaic attenuation appearance within the bilateral lower lobes and right middle lobe. No evidence of pulmonary embolism. Patient underwent bronchoscopy this morning which showed diffusely erythematous and friable airways bilaterally. No active bleeding noted. Bloody fluid noted in right lower lobe. Cultures were sent for testing. Pulmonary suspecting pulmonary capillaritis or diffuse alveolar hemorrhage. Patient was started on IV Levaquin and IV steroids. Autoimmune and vasculitic workup pending. Patient is hemodynamically stable. Respiratory panel negative. If patient has no further significant hemoptysis overnight, anticipate discharge home with outpatient follow-up with Dr. Lau. 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 Patient denies any chemical exposure or travel outside the country. Echocardiogram pending. 2. Hypertension-stable, continue lisinopril. 3. Gout-colchicine on hold. Patient reported chronic bilateral joint pain in hands. Rheumatoid factor negative. CRP within normal limits. X-ray of bilateral hands showed no joint destruction. 4. Tobacco dependence-patient has smoked 1-1/2 packs per day for approximately 25 years. Encourage smoking cessation. Nicotine replacement patch if desired. DVT prophylaxis- not indicated, pharmacologic prophylaxis contraindicated. This patient was seen by DENICE Wong under the supervision of Dr. Fulton. <Steven Fulton - Last Filed: 04/11/17 15:43> - Physical Exam General: Alert, No apparent distress HEENT: Atraumatic, Normocephalic Neck: No Nodes, Thyroid Normal Size and Texture Lungs: Clear to auscultation, Normal air movement, No rhonchi, No wheeze Cardiovascular: Regular rate, Regular Rhythm, Normal S1, Normal S2 Abdomen: Bowel Sounds Present, Soft, Non Tender, Non-Distended, No Hepato- splenomegaly Extremities: No edema, No Calf Tenderness Psych/Mental Status: Normal Affect, Appropriate Vital Signs Temp Pulse Resp BP Pulse Ox 36.4 C L 64 18 132/89 H 95 04/11/17 11:50 04/11/17 11:50 04/11/17 11:50 04/11/17 11:50 04/11/17 11:50 Oxygen Delivery Method Room Air Weight: 91 kg Body Mass Index (BMI) 27.1 Intake and Output for Last 24 Hours 04/09/17 04/10/17 04/11/17 23:59 23:59 23:59 Intake Total 1160 / 1160 Balance 1160 / 1160 Microbiology Past 72 Hours 04/11/17 08:45 Respiratory Panel (PCR) - Final Mucosa - Nasopharyngeal Laboratory Tests Past 24 Hrs 04/11/17 04/11/17 04/11/17 06:15 06:15 10:30 WBC RBC Hgb Hct MCV MCH MCHC RDW RDW Differential Plt Count MPV Immature Gran % (Auto) Neut % (Auto) Lymph % (Auto) [place] % (Auto) Eos % (Auto) Baso % (Auto) Absolute Neuts (auto) Absolute Lymphs (auto) Total Counted Fluid Source BRONCHIAL [place] Fluid Color RED Fluid Appearance SL CLDY Fluid WBC 5 Fluid RBC 15689 Fluid Tot Cell Count TNP Fluid Neutrophils 30 Fluid Macrophages 70 Fl Pathologist Comment May follow Fluid Comment 2 Not Reportable Cycl Citrul Peptide IgG Pending SARABJIT Screen Pending c-ANCA Antibody p-ANCA Antibody TAVIA-1 Antibody Pending SS-A/Ro IgG Antibody Pending SS-B/La IgG Antibody Pending Sm (Trejo) Antibody Pending ASSISTANT DEAN OF STUDENTS Antibody Pending Scl-70 Scleroderma Ab Pending Double Strand DNA Ab Pending Centromere B Antibody Pending Glomerular Base Memb Ab Complement C3 Complement C4 Tot Complement (CH50) Legionella Direct FA Miscellaneous Cytology 04/11/17 04/11/17 04/11/17 10:30 10:30 12:36 WBC 7.1 RBC 4.77 Hgb 13.9 Hct 40.6 MCV 85.1 MCH 29.1 MCHC 34.2 RDW 13.1 RDW Differential 40.0 Plt Count 293 MPV 9.8 Immature Gran % (Auto) 0.100 Neut % (Auto) 91.5 H Lymph % (Auto) 7.3 L [place] % (Auto) 1.1 Eos % (Auto) 0.0 Baso % (Auto) 0.0 Absolute Neuts (auto) 6.5 Absolute Lymphs (auto) 0.52 L Total Counted Not Reportable Fluid Source Fluid Color Fluid Appearance Fluid WBC Fluid RBC Fluid Tot Cell Count Fluid Neutrophils Fluid Macrophages Fl Pathologist Comment Fluid Comment 2 Cycl Citrul Peptide IgG SARABJIT Screen c-ANCA Antibody p-ANCA Antibody TAVIA-1 Antibody SS-A/Ro IgG Antibody SS-B/La IgG Antibody Sm (Trejo) Antibody ASSISTANT DEAN OF STUDENTS Antibody Scl-70 Scleroderma Ab Double Strand DNA Ab Centromere B Antibody Glomerular Base Memb Ab Complement C3 Complement C4 Tot Complement (CH50) Legionella Direct FA Pending Miscellaneous Cytology Pending 04/11/17 04/11/17 04/11/17 12:36 12:36 12:36 WBC RBC Hgb Hct MCV MCH MCHC RDW RDW Differential Plt Count MPV Immature Gran % (Auto) Neut % (Auto) Lymph % (Auto) [place] % (Auto) Eos % (Auto) Baso % (Auto) Absolute Neuts (auto) Absolute Lymphs (auto) Total Counted Fluid Source Fluid Color Fluid Appearance Fluid WBC Fluid RBC Fluid Tot Cell Count Fluid Neutrophils Fluid Macrophages Fl Pathologist Comment Fluid Comment 2 Cycl Citrul Peptide IgG SARABJIT Screen c-ANCA Antibody Pending p-ANCA Antibody Pending TAVIA-1 Antibody SS-A/Ro IgG Antibody SS-B/La IgG Antibody Sm (Trejo) Antibody ASSISTANT DEAN OF STUDENTS Antibody Scl-70 Scleroderma Ab Double Strand DNA Ab Centromere B Antibody Glomerular Base Memb Ab Pending Complement C3 Pending Complement C4 Pending Tot Complement (CH50) Pending Legionella Direct FA Miscellaneous Cytology Assessment/Plan Pt seen and examined independently. i agree with the above note by the PATTERN MARKING SUPERVISOR 1. Hemoptysis: * much improved * secondary to bronchiectasis * friable tissue on bronch * D/W Dr. Lau, monitor the patient overnight and if doing better, can be discharged 04/12. 2. Bronchiectasis * on levaquin * follow up with Pulmonology as outpt. Code Visit Inpatient E&M: 53024 Subs Hosp L2
[2017-04-11 13:29] LABS: Macrophages 70 %; Neutrophil (Segs) 30 %
--- NOTE | 2017-04-11 14:22 | CASEMGMT ---
Face to Face with patient for initial transition planning/care coordination assessment. JAY BROWN introduced self and role at [facility], pt voices understanding and consents to assessment at this time. Pt is sitting up in bed in no distress at this time. Pt A/O x4 at this time and answers all questions appropriately. Care providers, pharmacy, and demographics verified. See attached link. Pt voices no further concerns/needs at this time. Advised pt to ask for CM if any further questions/concerns/needs arise, voices understanding. PLAN: [place] JAY BROWN
--- NOTE | 2017-04-11 21:50 | NURSING ---
This RN is taking over patient care at this time.
[2017-04-12 03:08] VITALS: PULSE 58
[2017-04-12 04:52] VITALS: BP 110/68; PULSE 66; RESP 16; TEMP 36.9; O2SAT 96
[2017-04-12] MEDS: 0.9% NaCl Peripheral Flush Adult/Peds IV (05:00)
[2017-04-12] MEDS: levoFLOXacin 750 MG Tablet PO (05:00)
[2017-04-12 07:00] VITALS: PULSE 60
[2017-04-12 07:20] VITALS: O2SAT 94
--- NOTE | 2017-04-12 07:24 | PCM.PROGNOTE ---
Patient Problems: Active and Suspected Problems Joint pain (Acute) Hemoptysis (Acute) Subjective: The patient was seen and examined at the bedside this morning. Events from the last 24 hours have been reviewed. The patient is currently afebrile, hemodynamically stable and maintaining appropriate oxygen saturations on room air. He has been ambulatory without issue. He denies shortness of breath or chest pain. He reports near complete resolution of his hemoptysis. White blood cell count is elevated this morning likely secondary to corticosteroid administration, initiated yesterday. Objective: The patient's most recent lab work, culture data and imaging studies have all been personally reviewed. Bronchoscopy with BAL was completed on April 11 and revealed the presence of diffuse friable, erythematous airways bilaterally. BAL was performed in the right lower lobe. The patient's lavage consisted mainly of red blood cells. Autoimmune/vasculitic panel is pending. Respiratory Gram stain/culture are pending. - Physical Exam General: Alert, Cooperative, No apparent distress HEENT: Atraumatic, PERRLA, Normocephalic Oral: Moist Mucosa, No Gingival or Mucosal Lesions/ Ulcerations Neck: Supple, No Nodes, Trachea Midline Lungs: Normal air movement, No rhonchi, No wheeze, No rales Cardiovascular: Regular rate, Regular Rhythm, Normal S1, Normal S2, No murmurs Abdomen: Bowel Sounds Present, Soft, Non Tender, Non-Distended Extremities: No clubbing, No cyanosis, No edema, Capillary Refill Less than 3 Seconds Skin: No rashes, No breakdown Musculoskeletal: No Tenderness to Palpation of Joints or Extremities, No Muscle Wasting Lymphatic: No Cervical, Supraclavicular, or Inguinal Adenopathy Neurological: Neuro grossly intact Psych/Mental Status: Alert and oriented to time, place, person, mood and affect Vital Signs Temp Pulse Resp BP Pulse Ox 98.4 F 66 16 110/68 96 04/12/17 04:52 04/12/17 04:52 04/12/17 04:52 04/12/17 04:52 04/12/17 04:52 Oxygen Delivery Method Room Air Weight: 200 lb 9.93 oz Body Mass Index (BMI) 27.1 Intake and Output for Last 24 Hours 04/10/17 04/11/17 04/12/17 23:59 23:59 23:59 Intake Total 1620 / 1620 60 / 60 Balance 1620 / 1620 60 / 60 Microbiology Past 72 Hours 04/11/17 08:45 Respiratory Panel (PCR) - Final Mucosa - Nasopharyngeal Laboratory Tests Past 24 Hrs 04/11/17 04/11/17 04/11/17 06:15 10:30 10:30 WBC RBC Hgb Hct MCV MCH MCHC RDW RDW Differential Plt Count MPV Immature Gran % (Auto) Neut % (Auto) Lymph % (Auto) [place] % (Auto) Eos % (Auto) Baso % (Auto) Absolute Neuts (auto) Absolute Lymphs (auto) Total Counted Fluid Source BRONCHIAL LAVAGE Fluid Color RED Fluid Appearance SL CLDY Fluid WBC 5 Fluid RBC 75611 Fluid Tot Cell Count TNP Fluid Neutrophils 30 Fluid Macrophages 70 Fl Pathologist Comment May follow Fluid Comment 2 Not Reportable SARABJIT Screen Pending c-ANCA Antibody p-ANCA Antibody TAVIA-1 Antibody Pending SS-A/Ro IgG Antibody Pending SS-B/La IgG Antibody Pending Sm (Trejo) Antibody Pending SURVEILLANCE SYSTEM MONITOR Antibody Pending Scl-70 Scleroderma Ab Pending Double Strand DNA Ab Pending Centromere B Antibody Pending Glomerular Base Memb Ab Complement C3 Complement C4 Tot Complement (CH50) Legionella Direct FA Miscellaneous Cytology Pending 04/11/17 04/11/17 04/11/17 10:30 12:36 12:36 WBC 7.1 RBC 4.77 Hgb 13.9 Hct 40.6 MCV 85.1 MCH 29.1 MCHC 34.2 RDW 13.1 RDW Differential 40.0 Plt Count 293 MPV 9.8 Immature Gran % (Auto) 0.100 Neut % (Auto) 91.5 H Lymph % (Auto) 7.3 L [place] % (Auto) 1.1 Eos % (Auto) 0.0 Baso % (Auto) 0.0 Absolute Neuts (auto) 6.5 Absolute Lymphs (auto) 0.52 L Total Counted Not Reportable Fluid Source Fluid Color Fluid Appearance Fluid WBC Fluid RBC Fluid Tot Cell Count Fluid Neutrophils Fluid Macrophages Fl Pathologist Comment Fluid Comment 2 SARABJIT Screen c-ANCA Antibody Pending p-ANCA Antibody Pending TAVIA-1 Antibody SS-A/Ro IgG Antibody SS-B/La IgG Antibody Sm (Trejo) Antibody SURVEILLANCE SYSTEM MONITOR Antibody Scl-70 Scleroderma Ab Double Strand DNA Ab Centromere B Antibody Glomerular Base Memb Ab Complement C3 Complement C4 Tot Complement (CH50) Legionella Direct FA Pending Miscellaneous Cytology 04/11/17 04/11/17 04/12/17 12:36 12:36 06:30 WBC Pending RBC Pending Hgb Pending Hct Pending MCV Pending MCH Pending MCHC Pending RDW Pending RDW Differential Pending Plt Count Pending MPV Immature Gran % (Auto) Neut % (Auto) Lymph % (Auto) [place] % (Auto) Eos % (Auto) Baso % (Auto) Absolute Neuts (auto) Absolute Lymphs (auto) Total Counted Fluid Source Fluid Color Fluid Appearance Fluid WBC Fluid RBC Fluid Tot Cell Count Fluid Neutrophils Fluid Macrophages Fl Pathologist Comment Fluid Comment 2 SARABJIT Screen c-ANCA Antibody p-ANCA Antibody TAVIA-1 Antibody SS-A/Ro IgG Antibody SS-B/La IgG Antibody Sm (Trejo) Antibody SURVEILLANCE SYSTEM MONITOR Antibody Scl-70 Scleroderma Ab Double Strand DNA Ab Centromere B Antibody Glomerular Base Memb Ab Pending Complement C3 Pending Complement C4 Pending Tot Complement (CH50) Pending Legionella Direct FA Miscellaneous Cytology Clinical Impression(s) from Imaging Studies Chest X-Ray 04/10/17 21:01 IMPRESSION: Asymmetric prominence of markings in right lower lobe possibly representing subsegmental atelectasis or evolving infiltrate Electronically Signed: Dioni Alston MD at 22:18 EST , Service support , Chest CTA 04/10/17 21:02 IMPRESSION: Nonspecific mosaic attenuation appearance within the bilateral lower lobes and right middle lobe. No evidence for pulmonary embolus at this time Electronically Signed: Dioni Alston MD at 23:02 EST , Service support , Hand X-Ray 04/11/17 01:34 IMPRESSION: Soft tissue swelling. Electronically Signed: Philip Ty MD at 9:42 EST Tel [phone], Service support , Hand X-Ray 04/11/17 01:34 IMPRESSION: Tiny radiopaque foreign body as described. Electronically Signed: Philip Ty MD at 9:42 EST Tel [phone], Service support , Assessment/Plan Active and Suspected Problems Joint pain (Acute) Hemoptysis (Acute) RECOMMENDATIONS: 1. Plan to complete a 7 day treatment course of Levaquin. 2. The patient's IV steroids can be transitioned to prednisone 40 mg daily by mouth. At discharge, would recommend the following taper: 40 mg daily ?3 days, 20 mg daily ?3 days, 10 mg daily ?3 days. 3. We will follow-up with the patient's autoimmune/vasculitis workup as an outpatient. 4. The patient has been advised to call our office or return to the emergency department with any recurrence of his hemoptysis. 5. Please ensure that the patient has a scheduled follow-up office visit with the pulmonary medicine clinic within 2 weeks of his discharge from the hospital. IMPRESSIONS: 1. Hemoptysis Unclear etiology at this time. Although the patient does report a similar episode to this 1 year ago, which was transient in nature and resolved on its own. Bronchoscopy was performed on April 11, revealing diffusely erythematous and friable airways bilaterally. No focal area blood loss was identified. BAL was performed in the right lower lobe with findings concerning for diffuse alveolar hemorrhage/pulmonary capillaritis. The patient's hemoptysis appears to have resolved in the setting of corticosteroid initiation. The patient did also have evidence of bronchiectasis on his CT chest, for which she will be continued on Levaquin. The patient will be discharged on a steroid taper with instructions to follow-up in the pulmonary medicine clinic within 2 weeks. His autoimmune and vasculitis workup will be reviewed upon his follow-up in the pulmonary medicine clinic. 2. History of tobacco abuse Smoking cessation is strongly advised. Baseline pulmonary function testing can be obtained on an outpatient basis. 3. Hypertension/gout Complicates care, management, recovery and prognosis. Continue home medications as indicated. This note was generated with [employer] software. It may contain incorrect words, spelling, and punctuation that were not noted in checking the note before signing. Code Visit Inpatient E&M: 69523 Subs Hosp L2
--- NOTE | 2017-04-12 07:27 | PN_ITS ---
Patient Problems: Active and Suspected Problems Joint pain (Acute) Hemoptysis (Acute) Subjective: The patient was seen and examined at the bedside this morning. Events from the last 24 hours have been reviewed. The patient is currently afebrile, hemodynamically stable and maintaining appropriate oxygen saturations on room air. He has been ambulatory without issue. He denies shortness of breath or chest pain. He reports near complete resolution of his hemoptysis. White blood cell count is elevated this morning likely secondary to corticosteroid administration, initiated yesterday. Objective: The patient's most recent lab work, culture data and imaging studies have all been personally reviewed. Bronchoscopy with BAL was completed on April 11 and revealed the presence of diffuse friable, erythematous airways bilaterally. BAL was performed in the right lower lobe. The patient's lavage consisted mainly of red blood cells. Autoimmune/vasculitic panel is pending. Respiratory Gram stain/culture are pending. - Physical Exam General: Alert, Cooperative, No apparent distress HEENT: Atraumatic, PERRLA, Normocephalic Oral: Moist Mucosa, No Gingival or Mucosal Lesions/ Ulcerations Neck: Supple, No Nodes, Trachea Midline Lungs: Normal air movement, No rhonchi, No wheeze, No rales Cardiovascular: Regular rate, Regular Rhythm, Normal S1, Normal S2, No murmurs Abdomen: Bowel Sounds Present, Soft, Non Tender, Non-Distended Extremities: No clubbing, No cyanosis, No edema, Capillary Refill Less than 3 Seconds Skin: No rashes, No breakdown Musculoskeletal: No Tenderness to Palpation of Joints or Extremities, No Muscle Wasting Lymphatic: No Cervical, Supraclavicular, or Inguinal Adenopathy Neurological: Neuro grossly intact Psych/Mental Status: Alert and oriented to time, place, person, mood and affect Vital Signs Temp Pulse Resp BP Pulse Ox 98.4 F 66 16 110/68 96 04/12/17 04:52 04/12/17 04:52 04/12/17 04:52 04/12/17 04:52 04/12/17 04:52 Oxygen Delivery Method Room Air Weight: 200 lb 9.93 oz Body Mass Index (BMI) 27.1 Intake and Output for Last 24 Hours 04/10/17 04/11/17 04/12/17 23:59 23:59 23:59 Intake Total 1620 / 1620 60 / 60 Balance 1620 / 1620 60 / 60 Microbiology Past 72 Hours 04/11/17 08:45 Respiratory Panel (PCR) - Final Mucosa - Nasopharyngeal Laboratory Tests Past 24 Hrs 04/11/17 04/11/17 04/11/17 06:15 10:30 10:30 WBC RBC Hgb Hct MCV MCH MCHC RDW RDW Differential Plt Count MPV Immature Gran % (Auto) Neut % (Auto) Lymph % (Auto) [place] % (Auto) Eos % (Auto) Baso % (Auto) Absolute Neuts (auto) Absolute Lymphs (auto) Total Counted Fluid Source BRONCHIAL LAVAGE Fluid Color RED Fluid Appearance SL CLDY Fluid WBC 5 Fluid RBC 05396 Fluid Tot Cell Count TNP Fluid Neutrophils 30 Fluid Macrophages 70 Fl Pathologist Comment May follow Fluid Comment 2 Not Reportable SARABJIT Screen Pending c-ANCA Antibody p-ANCA Antibody TAVIA-1 Antibody Pending SS-A/Ro IgG Antibody Pending SS-B/La IgG Antibody Pending Sm (Trejo) Antibody Pending VP INTEGRATION Antibody Pending Scl-70 Scleroderma Ab Pending Double Strand DNA Ab Pending Centromere B Antibody Pending Glomerular Base Memb Ab Complement C3 Complement C4 Tot Complement (CH50) Legionella Direct FA Miscellaneous Cytology Pending 04/11/17 04/11/17 04/11/17 10:30 12:36 12:36 WBC 7.1 RBC 4.77 Hgb 13.9 Hct 40.6 MCV 85.1 MCH 29.1 MCHC 34.2 RDW 13.1 RDW Differential 40.0 Plt Count 293 MPV 9.8 Immature Gran % (Auto) 0.100 Neut % (Auto) 91.5 H Lymph % (Auto) 7.3 L [place] % (Auto) 1.1 Eos % (Auto) 0.0 Baso % (Auto) 0.0 Absolute Neuts (auto) 6.5 Absolute Lymphs (auto) 0.52 L Total Counted Not Reportable Fluid Source Fluid Color Fluid Appearance Fluid WBC Fluid RBC Fluid Tot Cell Count Fluid Neutrophils Fluid Macrophages Fl Pathologist Comment Fluid Comment 2 SARABJIT Screen c-ANCA Antibody Pending p-ANCA Antibody Pending TAVIA-1 Antibody SS-A/Ro IgG Antibody SS-B/La IgG Antibody Sm (Trejo) Antibody VP INTEGRATION Antibody Scl-70 Scleroderma Ab Double Strand DNA Ab Centromere B Antibody Glomerular Base Memb Ab Complement C3 Complement C4 Tot Complement (CH50) Legionella Direct FA Pending Miscellaneous Cytology 04/11/17 04/11/17 04/12/17 12:36 12:36 06:30 WBC Pending RBC Pending Hgb Pending Hct Pending MCV Pending MCH Pending MCHC Pending RDW Pending RDW Differential Pending Plt Count Pending MPV Immature Gran % (Auto) Neut % (Auto) Lymph % (Auto) [place] % (Auto) Eos % (Auto) Baso % (Auto) Absolute Neuts (auto) Absolute Lymphs (auto) Total Counted Fluid Source Fluid Color Fluid Appearance Fluid WBC Fluid RBC Fluid Tot Cell Count Fluid Neutrophils Fluid Macrophages Fl Pathologist Comment Fluid Comment 2 SARABJIT Screen c-ANCA Antibody p-ANCA Antibody TAVIA-1 Antibody SS-A/Ro IgG Antibody SS-B/La IgG Antibody Sm (Trejo) Antibody VP INTEGRATION Antibody Scl-70 Scleroderma Ab Double Strand DNA Ab Centromere B Antibody Glomerular Base Memb Ab Pending Complement C3 Pending Complement C4 Pending Tot Complement (CH50) Pending Legionella Direct FA Miscellaneous Cytology Clinical Impression(s) from Imaging Studies Chest X-Ray 04/10/17 21:01 IMPRESSION: Asymmetric prominence of markings in right lower lobe possibly representing subsegmental atelectasis or evolving infiltrate Electronically Signed: Dioni Alston MD at 22:18 EST , Service support , Chest CTA 04/10/17 21:02 IMPRESSION: Nonspecific mosaic attenuation appearance within the bilateral lower lobes and right middle lobe. No evidence for pulmonary embolus at this time Electronically Signed: Dioni Alston MD at 23:02 EST , Service support , Hand X-Ray 04/11/17 01:34 IMPRESSION: Soft tissue swelling. Electronically Signed: Philip Ty MD at 9:42 EST Tel [phone], Service support , Hand X-Ray 04/11/17 01:34 IMPRESSION: Tiny radiopaque foreign body as described. Electronically Signed: Philip Ty MD at 9:42 EST Tel [phone], Service support , Assessment/Plan Active and Suspected Problems Joint pain (Acute) Hemoptysis (Acute) RECOMMENDATIONS: 1. Plan to complete a 7 day treatment course of Levaquin. 2. The patient's IV steroids can be transitioned to prednisone 40 mg daily by mouth. At discharge, would recommend the following taper: 40 mg daily ?3 days, 20 mg daily ?3 days, 10 mg daily ?3 days. 3. We will follow-up with the patient's autoimmune/vasculitis workup as an outpatient. 4. The patient has been advised to call our office or return to the emergency department with any recurrence of his hemoptysis. 5. Please ensure that the patient has a scheduled follow-up office visit with the pulmonary medicine clinic within 2 weeks of his discharge from the hospital. IMPRESSIONS: 1. Hemoptysis Unclear etiology at this time. Although the patient does report a similar episode to this 1 year ago, which was transient in nature and resolved on its own. Bronchoscopy was performed on April 11, revealing diffusely erythematous and friable airways bilaterally. No focal area blood loss was identified. BAL was performed in the right lower lobe with findings concerning for diffuse alveolar hemorrhage/pulmonary capillaritis. The patient's hemoptysis appears to have resolved in the setting of corticosteroid initiation. The patient did also have evidence of bronchiectasis on his CT chest, for which she will be continued on Levaquin. The patient will be discharged on a steroid taper with instructions to follow-up in the pulmonary medicine clinic within 2 weeks. His autoimmune and vasculitis workup will be reviewed upon his follow-up in the pulmonary medicine clinic. 2. History of tobacco abuse Smoking cessation is strongly advised. Baseline pulmonary function testing can be obtained on an outpatient basis. 3. Hypertension/gout Complicates care, management, recovery and prognosis. Continue home medications as indicated. This note was generated with [employer] software. It may contain incorrect words, spelling, and punctuation that were not noted in checking the note before signing. Code Visit Inpatient E&M: 95006 Subs Hosp L2
[2017-04-12 07:34] LABS: Mean Corp Hgb Conc 33.3 g/gl (32-36); Mean Corpuscular Hgb 28.9 pg (27.0-32.0); Mean Corpuscular Volume 86.7 fL (80-94); Mean Platelet Vol. 9.8 fl (6.2-12.0); Platelet Count 273 K/mm3 (150-450); RBC Distribution Width CV 13.3 % (11.6-14.6); RBC Distribution Width SD 42.6 fl (35.1-43.9); White Blood Count 16.6 K/mm3 (4.4-11.0)
[2017-04-12 07:41] LABS: Scan Indicated on CBC? Y/N NO
[2017-04-12 09:29] VITALS: BP 116/61; PULSE 67; RESP 16; TEMP 37.1; O2SAT 95
[2017-04-12] MEDS: Lisinopril 10 MG Tablet PO (09:32)
[2017-04-12 11:00] VITALS: PULSE 62
--- NOTE | 2017-04-12 11:51 | PCM.PN.HOSP ---
Subjective: Patient is a 56-year-old male with a past medical history of hypertension and gout nicotine dependence who was admitted on April 10 with a complaint of hemoptysis. He had had a similar episode about a year ago which was transient and resolved after about 24-36 hours. Written and managed for hemoptysis. CT chest revealed very subtle pattern of mosaic attenuation within the lower lobes bilaterally and lower lobe predominant bronchiectasis. There was no evidence of PE. Bronchoscopy with bronchoalveolar lavage done on April 11 showed presence of diffuse friable erythematous with bilaterally. Lobe was consistent mainly of red blood cells and autoimmune and vasculitic panel is still pending. Patient has remained stable hemoptysis has resolved. Patient seen and examined today. He has no complaints today and feels very well. Hemoptysis has not recurred. He denies any fever, any chills, any cough or chest pain, any abdominal pain, any diarrhea vomiting. Review of systems otherwise negative. He feels well enough to go home and wants to be discharged. Vitals/I&O's: Vital Signs Temp Pulse Resp BP Pulse Ox 98.7 F 62 16 116/61 95 04/12/17 09:29 04/12/17 11:00 04/12/17 09:29 04/12/17 09:29 04/12/17 09:29 Oxygen Delivery Method Room Air Weight: 200 lb 9.93 oz Body Mass Index (BMI) 27.1 Intake and Output for Last 24 Hours 04/10/17 04/11/17 04/12/17 23:59 23:59 23:59 Intake Total 1620 / 1620 60 / 60 Balance 1620 / 1620 60 / 60 General: Alert, Oriented x3, Cooperative HEENT: Atraumatic, PERRLA, EOMI, Normocephalic Oral: Moist Mucosa Neck: Supple, No JVD, Negative Carotid Bruits Lungs: Clear to auscultation, Normal air movement, No rhonchi, No wheeze, No rales Cardiovascular: Regular rate, Regular Rhythm, Normal S1, Normal S2, No murmurs Abdomen: Bowel Sounds Present, Soft, Non Tender, Non-Distended, No Hepato-splenomegaly Extremities: No clubbing, No cyanosis, No edema, Capillary Refill Less than 3 Seconds Skin: No rashes, No breakdown Musculoskeletal: No Tenderness to Palpation of Joints or Extremities Lymphatic: No Cervical, Supraclavicular, or Inguinal Adenopathy Neurological: Cranial nerves II-XII grossly intact, Motor Exam 5/5 strength throughout Psych/Mental Status: Normal Affect, Alert and oriented to time, place, person, mood and affect Microbiology Past 72 Hours 04/11/17 10:30 Bronchial Lavage - Right Lower Lobe Respiratory Culture - Preliminary 04/11/17 08:45 Mucosa - Nasopharyngeal Respiratory Panel (PCR) - Final Laboratory Results 04/11/17 10:30: Fluid Source BRONCHIAL LAVAGE, Fluid Color RED, Fluid Appearance SL CLDY, Fluid WBC 5, Fluid RBC 14490, Fluid Tot Cell Count TNP, Fluid Neutrophils 30, Fluid Macrophages 70, Fl Pathologist Comment May follow, Fluid Comment 2 Not Reportable 04/11/17 12:36: WBC 7.1, RBC 4.77, Hgb 13.9, Hct 40.6, MCV 85.1, MCH 29.1, MCHC 34.2, RDW 13.1, RDW Differential 40.0, Plt Count 293, MPV 9.8, Immature Gran % (Auto) 0.100, Neut % (Auto) 91.5 H, Lymph % (Auto) 7.3 L, [place] % (Auto) 1.1, Eos % (Auto) 0.0, Baso % (Auto) 0.0, Absolute Neuts (auto) 6.5, Absolute Lymphs (auto) 0.52 L, Total Counted Not Reportable 04/11/17 12:36: c-ANCA Antibody Pending, p-ANCA Antibody Pending 04/11/17 12:36: Glomerular Base Memb Ab Pending 04/11/17 12:36: Complement C3 Pending, Complement C4 Pending, Tot Complement (CH50) Pending 04/12/17 06:30: WBC 16.6 H, RBC 4.50 L, Hgb 13.0, Hct 39.0 L, MCV 86.7, MCH 28.9, MCHC 33.3, RDW 13.3, RDW Differential 42.6, Plt Count 273, MPV 9.8 Current Medications Acetaminophen (Tylenol) 650 mg PO Q6H PRN PRN PRN Reason: Fever, headache, pain. Albuterol Sulfate (Ventolin Aerosols) 2.5 mg INHALATION Q4H PRN PRN PRN Reason: Shortness of breath, wheezing Levofloxacin (Levaquin) 750 mg PO DAILY@0600 PENDING SALE TO [facility] Last Admin: 04/12/17 05:00 Dose: 750 mg Lisinopril (Zestril) 10 mg PO DAILY PENDING SALE TO [facility] Last Admin: 04/12/17 09:32 Dose: 10 mg Methylprednisolone (Solu-Medrol) 40 mg IV Q6 PENDING SALE TO [facility] Last Admin: 04/12/17 05:00 Dose: 40 mg Ondansetron HCl (Zofran) 4 mg IV Q6H PRN PRN PRN Reason: NAUSEA/VOMITING Sodium Chloride () 5 - 30 ml IV UD PRN PRN Reason: SALINE FLUSH Last Admin: 04/12/17 05:00 Dose: 10 ml Assessment/Plan 1. Hemoptysis of unclear etiology . Has not had any hemoptysis over the last hours. Vitals have remained stable. Per discussion with house mover, will switch IV steroids to p.o. steroids. To be discharged on tapering dose of steroids as follows: 40 mg daily ?3 days, 20 mg daily ?3 days, 10 mg daily ?3 days. He also discharged on 7 day course of p.o. Levaquin 250 mg daily. To Follow-up with house mover on outpatient basis and to follow-up autoimmune and vasculitic workup with pulmonology. With pulmonology in 2 weeks 2. Hypertension: controlled. On lisinopril 3. Tobacco abuse Counseled strongly to quit smoking. To have PFTs with pulmonology upon discharge on outpatient basis. 4.Gout: Stable. 5. DVT prophylaxis: PCDs o/a of hemoptysis Disposition: [place] home today. To follow up with PCP adn house mover in 2 weeks This note was generated with [employer] software. It may contain incorrect words, spelling, and punctuation that were not noted in checking the note before signing. Code Visit Inpatient E&M: 12652 Subs Hosp L2
--- NOTE | 2017-04-12 11:59 | PN_ITS ---
Subjective: Patient is a 56-year-old male with a past medical history of hypertension and gout nicotine dependence who was admitted on April 10 with a complaint of hemoptysis. He had had a similar episode about a year ago which was transient and resolved after about 24-36 hours. Written and managed for hemoptysis. CT chest revealed very subtle pattern of mosaic attenuation within the lower lobes bilaterally and lower lobe predominant bronchiectasis. There was no evidence of PE. Bronchoscopy with bronchoalveolar lavage done on April 11 showed presence of diffuse friable erythematous with bilaterally. Lobe was consistent mainly of red blood cells and autoimmune and vasculitic panel is still pending. Patient has remained stable hemoptysis has resolved. Patient seen and examined today. He has no complaints today and feels very well. Hemoptysis has not recurred. He denies any fever, any chills, any cough or chest pain, any abdominal pain, any diarrhea vomiting. Review of systems otherwise negative. He feels well enough to go home and wants to be discharged. Vitals/I&O's: Vital Signs Temp Pulse Resp BP Pulse Ox 98.7 F 62 16 116/61 95 04/12/17 09:29 04/12/17 11:00 04/12/17 09:29 04/12/17 09:29 04/12/17 09:29 Oxygen Delivery Method Room Air Weight: 200 lb 9.93 oz Body Mass Index (BMI) 27.1 Intake and Output for Last 24 Hours 04/10/17 04/11/17 04/12/17 23:59 23:59 23:59 Intake Total 1620 / 1620 60 / 60 Balance 1620 / 1620 60 / 60 General: Alert, Oriented x3, Cooperative HEENT: Atraumatic, PERRLA, EOMI, Normocephalic Oral: Moist Mucosa Neck: Supple, No JVD, Negative Carotid Bruits Lungs: Clear to auscultation, Normal air movement, No rhonchi, No wheeze, No rales Cardiovascular: Regular rate, Regular Rhythm, Normal S1, Normal S2, No murmurs Abdomen: Bowel Sounds Present, Soft, Non Tender, Non-Distended, No Hepato- splenomegaly Extremities: No clubbing, No cyanosis, No edema, Capillary Refill Less than 3 Seconds Skin: No rashes, No breakdown Musculoskeletal: No Tenderness to Palpation of Joints or Extremities Lymphatic: No Cervical, Supraclavicular, or Inguinal Adenopathy Neurological: Cranial nerves II-XII grossly intact, Motor Exam 5/5 strength throughout Psych/Mental Status: Normal Affect, Alert and oriented to time, place, person, mood and affect Microbiology Past 72 Hours 04/11/17 10:30 Bronchial Lavage - Right Lower Lobe Respiratory Culture - Preliminary 04/11/17 08:45 Mucosa - Nasopharyngeal Respiratory Panel (PCR) - Final Laboratory Results 04/11/17 10:30: Fluid Source BRONCHIAL LAVAGE, Fluid Color RED, Fluid Appearance SL CLDY, Fluid WBC 5, Fluid RBC [id number], Fluid Tot Cell Count TNP, Fluid Neutrophils 30, Fluid Macrophages 70, Fl Pathologist Comment May follow, Fluid Comment 2 Not Reportable 04/11/17 12:36: WBC 7.1, RBC 4.77, Hgb 13.9, Hct 40.6, MCV 85.1, MCH 29.1, MCHC 34.2, RDW 13.1, RDW Differential 40.0, Plt Count 293, MPV 9.8, Immature Gran % ( Auto) 0.100, Neut % (Auto) 91.5 H, Lymph % (Auto) 7.3 L, Marshall % (Auto) 1.1, Eos % (Auto) 0.0, Baso % (Auto) 0.0, Absolute Neuts (auto) 6.5, Absolute Lymphs ( auto) 0.52 L, Total Counted Not Reportable 04/11/17 12:36: c-ANCA Antibody Pending, p-ANCA Antibody Pending 04/11/17 12:36: Glomerular Base Memb Ab Pending 04/11/17 12:36: Complement C3 Pending, Complement C4 Pending, Tot Complement ( CH50) Pending 04/12/17 06:30: WBC 16.6 H, RBC 4.50 L, Hgb 13.0, Hct 39.0 L, MCV 86.7, MCH 28.9 , MCHC 33.3, RDW 13.3, RDW Differential 42.6, Plt Count 273, MPV 9.8 Current Medications Acetaminophen (Tylenol) 650 mg PO Q6H PRN PRN PRN Reason: Fever, headache, pain. Albuterol Sulfate (Ventolin Aerosols) 2.5 mg INHALATION Q4H PRN PRN PRN Reason: Shortness of breath, wheezing Levofloxacin (Levaquin) 750 mg PO DAILY@0600 [facility] Last Admin: 04/12/17 05:00 Dose: 750 mg Lisinopril (Zestril) 10 mg PO DAILY [facility] Last Admin: 04/12/17 09:32 Dose: 10 mg Methylprednisolone (Solu-Medrol) 40 mg IV Q6 [facility] Last Admin: 04/12/17 05:00 Dose: 40 mg Ondansetron HCl (Zofran) 4 mg IV Q6H PRN PRN PRN Reason: NAUSEA/VOMITING Sodium Chloride () 5 - 30 ml IV UD PRN PRN Reason: SALINE FLUSH Last Admin: 04/12/17 05:00 Dose: 10 ml Assessment/Plan 1. Hemoptysis of unclear etiology * . Has not had any hemoptysis over the last hours. * Vitals have remained stable. * Per discussion with marriage therapist, will switch IV steroids to p.o. steroids. To be discharged on tapering dose of steroids as follows: 40 mg daily ?3 days, 20 mg daily ?3 days, 10 mg daily ?3 days. * He also discharged on 7 day course of p.o. Levaquin 250 mg daily. * To Follow-up with marriage therapist on outpatient basis and to follow-up autoimmune and vasculitic workup with pulmonology. * With pulmonology in 2 weeks 2. Hypertension: controlled. On lisinopril 3. Tobacco abuse * Counseled strongly to quit smoking. To have PFTs with pulmonology upon discharge on outpatient basis. * 4.Gout: Stable. 5. DVT prophylaxis: PCDs o/a of hemoptysis Disposition: DC home today. To follow up with PCP adn marriage therapist in 2 weeks This note was generated with clypdation software. It may contain incorrect words, spelling, and punctuation that were not noted in checking the note before signing. Code Visit Inpatient E&M: 51915 Subs Hosp L2
--- NOTE | 2017-04-12 12:36 | PCM.DC ---
- Discharge Diagnoses Current Active Problems: Current Active and Chronic Problems Joint pain (Acute) Hemoptysis (Acute) Gout (Chronic) Hypertension (Chronic) Reason(s) for Visit for Discharge Instructions: HEMOPTYSIS You will use the following diet at home:: Cardiac Your food should be the consistency of: Regular Your liquids should be the consistency of: Regular/Thin Discharge Activity: Return to Normal Activity May resume sexual activity in: No Restrictions Weight Bearing Status: Weight bearing as tolerated Call your doctor if your incision/area has: - Call your doctor if you observe: - - COUGH UP BLOOD Allergies/Adverse Reactions: Allergies No Known Allergies Allergy (Verified 04/10/17 20:12) Medications to take at Discharge Colchicine 0.6 mg PO DAILY 04/10/17 Lisinopril [Zestril] 10 mg PO DAILY 04/10/17 Aspirin [Aspirin, Baby] 81 mg PO DAILY@0800 04/11/17 Levofloxacin [Levaquin] 750 mg PO DAILY@0600 7 Days tab 04/12/17 Prednisone 10 mg PO UD #30 tab 04/12/17 The following prescriptions were given: Levofloxacin [Levaquin] 750 mg PO DAILY@0600 7 Days tab Prednisone 10 mg PO UD #30 tab Please follow up with your Primary Care Physician in: ONE WEEK Please Follow Up With: Alton Lau DO When: 2 WEEKS Please Follow Up With: Louise Sanabria NP-C When: ONE WEEK Proposed Discharge Date: 04/12/17
--- NOTE | 2017-04-12 14:51 | PCM.DC.SUM ---
Discharge Date and Diagnosis Date of Admission: 04/11/17 Date of Discharge: 04/12/17 - Primary Discharge Diagnosis hemoptysis - Secondary Discharge Diagnosis Chronic Problems Gout (Chronic) Hypertension (Chronic) Hospital Course and Treatment pulmonology Operations: None Procedures: Bronchoscopy Summary of Care Provided: The patient is a 56 year old M with a past medical history of hypertension and gout nicotine dependence who was admitted on April 10 with a complaint of hemoptysis. He had had a similar episode about a year ago which was transient and resolved after about 24-36 hours. He was managed for hemoptysis. CT chest revealed very subtle pattern of mosaic attenuation within the lower lobes bilaterally and lower lobe predominant bronchiectasis. There was no evidence of PE. Bronchoscopy with bronchoalveolar lavage done on April 11 showed presence of diffuse friable erythematous with bilaterally. Bronchoscopy lavage was consistent mainly with red blood cells; autoimmune and vasculitic panel was ordered, but results were still pending at time of discharge. Patient remained stable and hemoptysis resolved. Home medication list was reviewed and reconciled. He was discharged home on 04/12/17, on PO levaquin 750mg x 5 days, and tapering dose of prednisone. He is to follow up with pulmonology in 2 weeks, and with PCP in one week. He is to follow up on autoimmune and vasculitic workup with pulmonology on follow up. Discharge Activity: Return to Normal Activity May resume sexual activity in: No Restrictions Weight Bearing Status: Weight bearing as tolerated Call your doctor if your incision/area has: - Call your doctor if you observe: - - COUGH UP BLOOD Home Medications: Medications to take at Discharge Colchicine 0.6 mg PO DAILY 04/10/17 Lisinopril [Zestril] 10 mg PO DAILY 04/10/17 Aspirin [Aspirin, Baby] 81 mg PO DAILY@0800 04/11/17 Levofloxacin [Levaquin] 750 mg PO DAILY@0600 7 Days tab 04/12/17 Prednisone 10 mg PO UD #30 tab 04/12/17 Following Prescrptions Were Given to Patient: Levofloxacin [Levaquin] 750 mg PO DAILY@0600 7 Days tab Prednisone 10 mg PO UD #30 tab Primary Care Physician: Louise Sanabria, ALEKSANDER-C [Primary Care Provider] - Please follow up with your Primary Care Physician in: ONE WEEK Please Follow Up With: Brown,Alton, DO When: 2 WEEKS Please Follow Up With: Louise Sanabria NP-C When: ONE WEEK Pending Tests Upon Discharge: AUTOIMMUNE AND VASCULITIC WORKUP Disposition: Home Minutes spent on discharge:: 40 Patient Condition:: Good Meaningful Use Info Meaningful Use Diagnoses (Choose all that apply): None applicable Code Visit Inpatient E&M: 65458 Disch Hosp
[2017-04-14 10:25] LABS: Pathologist Comment/Body Fluid Reviewed
[2017-04-14 10:37] LABS: ANTINUCLEAR ANTIBODIES DIRECT Negative (Negative)
[2017-04-14 16:08] LABS: Complement C3 129 mg/dL (82-167)
[2017-04-14 20:07] LABS: Cytoplasmic Ab (C-ANCA) <1:20 titer (Neg:<1:20)
[2017-04-15 15:45] LABS: Anti-Glomerular Basement Memb 4 units (0-20)
[2017-04-15 16:03] LABS: CCP IgG Antibodies 10 units (0-19)
[2017-04-15 16:07] LABS: Complement CH50 57 U/mL (42-60)
[2017-04-15 16:28] LABS: Perinuclear Ab (P-ANCA) <1:20 titer (Neg:<1:20)
== END 2017-04-12 13:11 | disposition home or self-care (01) ==
LOC: ED 21:17 → PCU 04-11 00:53
PROVIDERS: Internal Medicine Critical Care Medicine; Nurse Practitioner Family; Admitting Provider Hospitalist; Emergency Provider Emergency Medicine; Family Provider Nurse Practitioner; PCP Nurse Practitioner; Visit Provider Student in an Organized Health Care Education/Training Program
PROC: 0BJ08ZZ Inspection of Tracheobronchial Tree, Via Natural or Artificial Opening Endoscopic (ICD-10-PCS; CPT 31622; principal; 2017-04-11 09:45)
DX: R04.2 Hemoptysis (principal); M10.9 Gout, unspecified; I10 Essential (primary) hypertension; F17.200 Nicotine dependence, unspecified, uncomplicated; Z79.899 Other long term (current) drug therapy; Z79.82 Long term (current) use of aspirin
CPT/HCPCS: 31624; 36415; 71045; 71275; 73120; 80048; 80076; 83520; 83605; 84484; 85025; 85027; 85610; 85652; 85730; 86038; 86140; 86160; 86162; 86200; 86225; 86235; 86256; 86431; 87015; 87070; 87077; 87101; 87106; 87116; 87205; 87206; 87252; 87278; 87633; 87804; 88108; 88305; 88312; 88313; 88341; 88342; 89050; 93005; 93306; 94640; 96361; 96374; 96376; 99152; 99153; 99218; 99285; 99406; J7030; J7040; Q9967; A4216; G0378

== ENCOUNTER → 2017-10-30 21:10 | Outpatient (CLI) | payer OTHER, SELFPAY ==
[2017-10-30 21:37] LABS: Absolute Lymphocyte Count 1.74 X10^3/ul (0.83-4.51); Absolute Neutrophil Count 5.6 X10^3/uL (2.0-7.7); Basophil# 0.01 X10^3/uL; Basophil% 0.1 % (0-1); Eosinophil# 0.21 X10^3/uL; Eosinophils% 2.5 % (0-5); Hematocrit 44.4 % (40-54); Hemoglobin 14.8 g/dl (13.0-16.5); Lymphocyte # 1.74 X10^3/ul (4.0); Lymphocyte % 21.1 % (19-41); Mean Corp Hgb Conc 33.3 g/gl (32-36); Mean Corpuscular Hgb 28.7 pg (27.0-32.0); Mean Corpuscular Volume 86.2 fL (80-94); Mean Platelet Vol. 9.7 fl (6.2-12.0); Monocyte# 0.66 X10^3/uL; Neutrophil # 5.61 X10^3/uL (2.7-7.7); Neutrophil % 68.1 % (47-70); Platelet Count 314 K/mm3 (150-450); RBC Distribution Width CV 13.1 % (11.6-14.6); RBC Distribution Width SD 41.6 fl (35.1-43.9); Red Blood Count 5.15 M/mm3 (4.6-6.2); White Blood Count 8.3 K/mm3 (4.4-11.0)
[2017-10-30 21:40] LABS: POSITIVE COUNT NO; POSITIVE DIFFERENTIAL NO; POSITIVE MORPHOLOGY NO
[2017-10-30 21:48] LABS: ALB/GLOB Ratio 1.2 RATIO (0.9-2.4); AST(SGOT) 18 U/L (15-37); Alanine Aminotransfer ALT/SGPT 26 U/L (16-61); Albumin, Serum 4.1 g/dL (3.2-5.0); Alkaline Phosphatase 87 U/L (45-117); Anion Gap 9 (5-15); BUN 11 mg/dL (7-18); BUN/Creat Ratio 12.6 RATIO (10-20); Calcium,Total 8.6 mg/dL (8.5-10.1); Chloride 107 mmol/L (98-107); Cholesterol 187 mg/dL (200); Creatinine, Serum 0.87 mg/dL (0.70-1.30); EST Glomerular Filtration Rate 96 mL/min (>60); Est Glom Filt Rate - Afr Amer 117 mL/min (>60); Globulin 3.4 g/dL (2.2-4.2); Glucose 88 mg/dL (74-106); High Density Lipoprotein 49 mg/dL; Protein, Total 7.5 g/dL (6.4-8.2); Sodium Level 140 mmol/L (136-145); Triglycerides 135 mg/dL; Uric Acid 7.1 mg/dL (3.5-7.2); Very Low Density Lipoprotein 27 mg/dL (5-40)
== END ==
PROVIDERS: Visit Provider Nurse Practitioner
DX: M10.9 Gout, unspecified (principal)
CPT/HCPCS: 80053; 80061; 84550; 85025

== ENCOUNTER → 2022-03-14 | Outpatient (CLI) | payer OTHER, MEDICAID, SELFPAY ==
[2022-03-14 22:04] LABS: Absolute Lymphocyte Count 2.12 X10^3/uL (0.83-4.51); Absolute Neutrophil Count 4.4 X10^3/uL (2.0-7.7); Basophil# 0.04 X10^3/uL; Basophil% 0.5 % (0-1); Eosinophil# 0.34 X10^3/uL; Eosinophils% 4.5 % (0-5); Hematocrit 45.1 % (40-54); Lymphocyte # 2.12 X10^3/ul (0.83-4.51); Lymphocyte % 27.7 % (19-41); Mean Corp Hgb Conc 33.3 g/dL (32-36); Mean Corpuscular Hgb 29.3 pg (27.0-32.0); Mean Corpuscular Volume 88.1 fL (80-94); Mean Platelet Vol. 9.8 fl (6.2-12.0); Monocyte# 0.73 X10^3/uL; Monocyte% 9.6 % (0-10); NRBC Flagged by Analyzer 0 % (0-5); Neutrophil # 4.39 X10^3/uL (2.7-7.7); Neutrophil % 57.4 % (47-70); Platelet Count 284 K/mm3 (150-450); RBC Distribution Width SD 42.4 fl (35.1-43.9); Red Blood Count 5.12 M/mm3 (4.6-6.2); White Blood Count 7.6 K/mm3 (4.4-11.0)
[2022-03-14 22:42] LABS: ALB/GLOB Ratio 1.5 RATIO (0.9-2.4); AST(SGOT) 17 U/L (15-37); Alanine Aminotransfer ALT/SGPT 28 U/L (16-61); Albumin, Serum 4.1 g/dL (3.2-5.0); Alkaline Phosphatase 79 U/L (45-117); Anion Gap 4 (5-15); BUN 13 mg/dL (7-18); Calcium,Total 9.1 mg/dL (8.5-10.1); Chloride 108 mmol/L (98-107); Cholesterol 184 mg/dL (200); Creatinine, Serum 0.81 mg/dL (0.70-1.30); EST Glomerular Filtration Rate 103 mL/min (>60); Est Glom Filt Rate - Afr Amer 125 mL/min (>60); Globulin 2.8 g/dL (2.2-4.2); Glucose 93 mg/dL (74-106); High Density Lipoprotein 61 mg/dL; PSA,Total - Annual Screen 0.82 ng/mL (0.00-4.00); Potassium 4.8 mmol/L (3.5-5.1); Protein, Total 6.9 g/dL (6.4-8.2); Sodium Level 141 mmol/L (136-145); Thyroid Stim Hormone (TSH) 2.08 uIU/mL (0.358-3.74); Triglycerides 71 mg/dL; Uric Acid 6.1 mg/dL (3.5-7.2); Very Low Density Lipoprotein 14 mg/dL (5-40)
== END | disposition home or self-care (01) ==
PROVIDERS: PCP Nurse Practitioner; Visit Provider Nurse Practitioner
DX: J44.9 Chronic obstructive pulmonary disease, unspecified (principal); I10 Essential (primary) hypertension; M10.9 Gout, unspecified; R35.0 Frequency of micturition
CPT/HCPCS: 80053; 80061; 84153; 84443; 84550; 85025; G0103

== ENCOUNTER → 2023-03-27 | Outpatient (CLI) | payer OTHER, SELFPAY ==
--- OUTSIDE RECORDS SUMMARY | 2023-03-27 22:01 | XMS RPT_ITS | CCD ---
Author Name Unknown Address [address] [place] [address] Organization [facility] Care Team Providers Care Executive Business Coach Name Role Phone SREE JAVIER (JAMES) Referring Unavailable Results Test Name Value Interpretation Reference Range Facil ity Encounters Encounter Date Encounter Type Care Provider Facility Start: 04-10-2018 End: 04-13-2018 Patient encounter procedure SREE BORGES) [facility] Summary Purpose Family History No Family History Records Found Advance Directives No Advanced Directives Records Found Additional Source Comments (unrecognized sect ion and content) No Status Records Found INFORMATION SOURCE (unrecogn ized section and content) FOR RECORDS PERTAINING TO PATIENTS WHO ARE OR HAVE BEEN ENROLLED IN A CHEMICAL DEPENDENCY/SUBSTANCEABUSE PROGRAM, SOME INFORMATION MAY BE OMITTED. This clinical summary was aggregated from multiple sources. Caution should be exercised in using it in the provision of clinical care. This summary normalizes information from multiple sources, and as a consequence, information in this document may materially change the coding, format and clinical context of patient data. In addition, data may be omitted in some cases. CLINICAL DECISIONS SHOULD BE BASED ON THE PRIMARY CLINICAL RECORDS. [employer] provides no warranty or guarantee of the accuracy or completeness of information in this document.
[2023-03-27 22:22] LABS: Absolute Lymphocyte Count 2.32 X10^3/uL (0.83-4.51); Absolute Neutrophil Count 5.2 X10^3/uL (2.0-7.7); Basophil# 0.06 X10^3/uL; Basophil% 0.7 % (0-1); Eosinophil# 0.33 X10^3/uL; Eosinophils% 3.8 % (0-5); Hematocrit 44.7 % (40-54); Hemoglobin 14.6 g/dL (13.0-16.5); Lymphocyte # 2.32 X10^3/ul (0.83-4.51); Lymphocyte % 26.9 % (19-41); Mean Corp Hgb Conc 32.7 g/dL (32-36); Mean Corpuscular Hgb 28.8 pg (27.0-32.0); Mean Corpuscular Volume 88.2 fL (80-94); Mean Platelet Vol. 10.4 fl (6.2-12.0); Monocyte% 8.1 % (0-10); NRBC Flagged by Analyzer 0 % (0-5); Neutrophil % 60.3 % (47-70); Platelet Count 317 K/mm3 (150-450); RBC Distribution Width CV 13.1 % (11.6-14.6); RBC Distribution Width SD 41.9 fl (35.1-43.9); Red Blood Count 5.07 M/mm3 (4.6-6.2); White Blood Count 8.6 K/mm3 (4.4-11.0)
[2023-03-27 22:40] LABS: ALB/GLOB Ratio 1.3 RATIO (0.9-2.4); AST(SGOT) 21 U/L (15-37); Alanine Aminotransfer ALT/SGPT 34 U/L (16-61); Albumin, Serum 3.8 g/dL (3.2-5.0); Alkaline Phosphatase 84 U/L (45-117); Anion Gap 3 (5-15); BUN 12 mg/dL (7-18); BUN/Creat Ratio 11.3 RATIO (10-20); Calcium,Total 8.9 mg/dL (8.5-10.1); Chloride 112 mmol/L (98-107); Cholesterol 180 mg/dL (200); Creatinine, Serum 1.06 mg/dL (0.70-1.30); EST Glomerular Filtration Rate 76 mL/min (>60); Est Glom Filt Rate - Afr Amer 92 mL/min (>60); Glucose 82 mg/dL (74-106); High Density Lipoprotein 59 mg/dL; PSA,Total - Annual Screen 1.07 ng/mL (0.00-4.00); Potassium 4.1 mmol/L (3.5-5.1); Protein, Total 6.8 g/dL (6.4-8.2); Sodium Level 142 mmol/L (136-145); Triglycerides 159 mg/dL; Uric Acid 6.8 mg/dL (3.5-7.2); Very Low Density Lipoprotein 32 mg/dL (5-40)
== END | disposition home or self-care (01) ==
PROVIDERS: PCP Nurse Practitioner; Visit Provider Nurse Practitioner
DX: I10 Essential (primary) hypertension (principal); N52.9 Male erectile dysfunction, unspecified; M10.9 Gout, unspecified; R35.0 Frequency of micturition; F17.200 Nicotine dependence, unspecified, uncomplicated; Z12.5 Encounter for screening for malignant neoplasm of prostate
CPT/HCPCS: 80053; 80061; 84153; 84550; 85025; G0103